=== PATIENT | female | born 1935 | race Asian ===

== ENCOUNTER 2016-09-20 12:45 | Observation (INO) | payer OTHER, MEDICARE ==
[2016-09-20 12:56] VITALS: BMI 21.4
--- NOTE | 2016-09-20 13:54 | PDOC ---
History of Present Illness - General History Source: Patient Exam Limitations: No Limitations - History of Present Illness Initial Comments: 09/20/16 14:21 The patient is a year-old woman, accompanied by friend, with a significant past medical history of hypertension, thyroid Ca status post resection (on remission ) who presents to the emergency department for further evaluation of lightheadedness. No fall, head injury. Patient states that she woke up this morning feeling lightheaded and nauseous, at approximately 08:30 AM. She initially ignored it but noticed that she started to have associated symptoms of chest pressure sensations and shortness of breath when laying down and when walking around the house today. She states this is very atypical, as she typically does not experience chest pains or shortness of breath. She was concerned thus, she called her primary care physician, Dr. Shaw, who unbeknownst to her, Dr. Shaw is currently on vacation. She then called Dr. Kauffman, who is her son-in-law who suggested to present to the emergency department for further evaluation. She reports undergoing a stress test last year (September/2015) and was normal. No fever, chills, diaphoresis. No headache, palpitations, loss of consciousness, neck pain N cough, shortness of breath No abdominal pain, vomiting, diarrhea, constipation No urinary symptoms. Allergies: No Known Drug Allergies Past Surgical History: Resection. Right knee arthroscopy. Social History: No tobacco, ETOH and recreational drug use. Primary Care Physician: Dr. Scott Mukherjee <Tia Gold - Last Filed: 09/20/16 15:08> <Christopher Richmond - Last Filed: 09/20/16 15:49> - General Chief Complaint: Lightheaded Stated Complaint: NAUSEA, DIZZINESS Time Seen by Provider: 09/20/16 13:45 Past History <Tia Gold - Last Filed: 09/20/16 15:08> - Past Medical History Anemia: No Asthma: No Cancer: Yes (thyroid cancer) Cardiac Disorders: No CVA: No COPD: No CHF: No Dementia: No Diabetes: No GI Disorders: No Disorders: No HTN: Yes Hypercholesterolemia: No Liver Disease: No Seizures: No Thyroid Disease: Yes (ENLARGED/Removed) - Surgical History Abdominal Surgery: No Appendectomy: No Cardiac Surgery: No Cholecystectomy: No Lung Surgery: No Neurologic Surgery: No Orthopedic Surgery: Yes (R KNEE ARTHROSCOPY) - Immunization History Immunization Up to Date: Yes - Psycho/Social/Smoking Cessation Hx Anxiety: No Suicidal Ideation: No Smoking Status: No Smoking History: Never smoked Have you smoked in the past 12 months: No Number of Cigarettes Smoked Daily: 0 Information on smoking cessation initiated: No Hx Alcohol Use: No Drug/Substance Use Hx: No Substance Use Type: None Hx Substance Use Treatment: No <Christopher Richmond - Last Filed: 09/20/16 15:49> - Past Medical History Allergies/Adverse Reactions: Allergies Allergy/AdvReac Type Severity Reaction Status Date / Time No Known Drug Allergies Allergy Verified 09/20/16 12:56 Home Medications: Ambulatory Orders Amlodipine Besylate [Norvasc -] 2.5 mg PO DAILY 05/29/16 Aspirin [ASA -] 81 mg PO DAILY PRN 05/29/16 Levothyroxine [Synthroid] 112 mcg PO DAILY 05/29/16 Meloxicam [Mobic] 15 mg PO DAILY PRN 05/29/16 Acetaminophen [Tylenol] 650 mg PO Q4H PRN #20 tablet 05/30/16 Loperamide HCl [Imodium -] 2 mg PO Q6H PRN #20 capsule 05/30/16 Mag Hydrox/Al Hydrox/Simeth [Mylanta Suspension -] 30 ml PO Q6H PRN #1 bottle Ondansetron HCl [Zofran] 4 mg PO Q6H PRN #15 tablet 05/30/16 Ondansetron [Zofran *Odt*] 8 mg SL TID #30 od.tablet 05/30/16 Ranitidine HCl [Zantac] 150 mg PO BID PRN #14 tablet 05/30/16 Review of Systems - Review of Systems Constitutional: No: Chills, Fever Respiratory: No: Cough, Shortness of Breath Cardiac (ROS): Yes: Chest Pain, Lightheadedness. No: Edema, Syncope ABD/GI: Yes: Nausea. No: Diarrhea, Vomiting : No: Dysuria, Frequency Musculoskeletal: No: Muscle Pain All Other Systems: Reviewed and Negative <Christopher Richmond - Last Filed: 09/20/16 15:49> *Physical Exam - Vital Signs Last Vital Signs Temp Pulse Resp BP Pulse Ox 97.8 F 85 17 152/85 100 09/20/16 12:55 09/20/16 12:55 09/20/16 12:55 09/20/16 12:55 09/20/16 12:55 - Physical Exam Comments: 09/20/16 14:23 GENERAL: The patient is awake, alert, and fully oriented, in no acute distress. HEAD: Normal with no signs of trauma. EYES: Pupils equal, round and reactive to light, extraocular movements intact, sclera anicteric, conjunctiva clear with no pallor. ENT: Ears normal, nares patent, oropharynx clear without exudates. Slightly dry mucous membranes. NECK: Normal range of motion, supple without lymphadenopathy, JVD, or masses. LUNGS: Breath sounds equal, clear to auscultation bilaterally. No wheeze/ crackles. HEART: Regular rate and rhythm, normal S1 and S2 without murmur or rub. ABDOMEN: Soft/nontender/nondistended. BS wnl. No guarding or rebound. No palpable masses. No hepatosplenomegaly. EXTREMITIES: Normal range of motion, no edema. No clubbing or cyanosis. No cords, erythema, or tenderness. NEUROLOGICAL: Cranial nerves II through XII grossly intact. Normal speech. PSYCH: Normal mood, normal affect. SKIN: Warm, Dry, normal turgor, no rashes or lesions noted. <Tia Gold - Last Filed: 09/20/16 15:08> - Vital Signs Last Vital Signs Temp Pulse Resp BP Pulse Ox 97.8 F 85 17 152/85 100 09/20/16 12:55 09/20/16 12:55 09/20/16 12:55 09/20/16 12:55 09/20/16 12:55 <Christopher Richmond - Last Filed: 09/20/16 15:49> Heart Score/ECG Review #1 ECG reviewed & interpreted by me at: 14:15 General ECG Interpretation: Sinus Rhythm (low voltage inferior leads), Normal Rate (77), Normal Intervals (qtc 439), No acute ischemic changes Compared to previous ECG there are: Changes noted (low voltage in the inferior leads is new c/w 12/03/12) <Christopher Richmond - Last Filed: 09/20/16 15:49> ED Treatment Course - LABORATORY CBC & Chemistry Diagram: 09/20/16 14:09 09/20/16 14:09 - RADIOLOGY Radiograph Interpretation: 09/20/16 15:08 EXAM: RAD/CHEST X-RAY PORTABLE IMPRESSION: Frontal view of the chest is provided. Prior study dated December 03, 2012. Lung parks appear clear without infiltrate or effusion. Cardiomediastinal silhouette is normal in size. There is a tortuous mildly sclerotic aorta. There are degenerative changes of the left glenohumeral joint. A small calcific density overlies the axillary recess raising possibility of intra-articular body. <Tia Gold - Last Filed: 09/20/16 15:08> - LABORATORY CBC & Chemistry Diagram: 09/20/16 14:09 09/20/16 14:09 <Christopher Richmond - Last Filed: 09/20/16 15:49> Medical Decision Making - Medical Decision Making 09/20/16 14:04 A portion of this note was documented by scribe services under my direction. I have reviewed the details of the note, within reason, and agree with the documentation with the following case summary and management plan written by me. 81-year-old female with history of well-controlled hypertension presents with lightheadedness and nausea with mild chest pressure since awakening this morning. No syncope, no difficulty breathing, no vomiting or focal deficit. Reportedly normal stress test about one year ago, no recent infectious symptoms. Vital signs normal. Exam is normal. 81-year-old female with hypertension presents with lightheadedness and nausea since awakening this morning. The mild chest pressure raises some concern for ACS, otherwise rule out other metabolic/infectious process. Labs, urinalysis EKG, chest x-ray IV fluids Reassess 09/20/16 15:41 No anemia, troponin negative, creatinine normal, urinalysis with 1+ ketones but no evidence of infection. Persistently lightheaded and EKG shows new low voltage in the inferior leads compared to prior EKGs. Given age and risk factors , will monitor overnight for cardiac workup and evaluation. Discussed with daughter (Dr. Kauffman), who requests admission to [facility] in light of Dr. Shaw being on vacation. Will give aspirin, continue iv fluids. <Christopher Richmond - Last Filed: 09/20/16 15:49> *DC/Admit/Observation/Transfer - Attestations Scribe Attestion: 09/20/16 14:24 Documentation prepared by Tia Gold, acting as regional medical director for Christopher Richmond MD. <Tia Gold - Last Filed: 09/20/16 15:08> - Discharge Dispostion Admit: Yes <Christopher Richmond - Last Filed: 09/20/16 15:49> Diagnosis at time of Disposition: Lightheaded, Abnormal electrocardiography - Discharge Dispostion Condition at time of disposition: Fair - Referrals Referrals: Scott Shaw MD [Primary Care Provider] -
[2016-09-20] MEDS ORDERED: SODIUM CHLORIDE 500 ML IV ONE (14:14)
[2016-09-20 14:52] LABS: BASOPHIL 2.5 % (0-2.0); EOSINOPHIL 0.9 % (0-4.5); MCH 31.4 pg (25.7-33.7); MCHC 34.2 g/dl (32.0-36.0); MEAN CELL VOLUME 91.8 fl (80-96); MEAN PLT VOLUME 6.5 fl (7.5-11.1); NEUTROPHILS 63.3 % (42.8-82.8); PLATELET COUNT 308 K/MM3 (134-434); WHITE BLOOD COUNT 4.5 K/mm3 (4.0-10.0)
[2016-09-20 14:59] LABS: URINE APPEARANCE CLEAR; URINE BILIRUBIN NEGATIVE (NEGATIVE); URINE BLOOD 1+ (NEGATIVE); URINE COLOR COLORLESS; URINE GLUCOSE (UA) NEGATIVE (NEGATIVE); URINE KETONE TRACE (NEGATIVE); URINE LEUK ESTERASE NEGATIVE (NEGATIVE); URINE NITRITE NEGATIVE (NEGATIVE); URINE PROTEIN NEGATIVE (NEGATIVE); URINE UROBILINOGEN NEGATIVE E.U./dl (0.2-1.0)
[2016-09-20 15:10] LABS: ANION GAP 8 (8-16); BILIRUBIN,TOTAL 0.4 mg/dL (0.2-1.0); CALCIUM 9.1 mg/dL (8.5-10.1); CO2 27 mmol/L (21-32); CREATININE 0.7 mg/dL (0.55-1.02); GLUCOSE,RANDOM 105 mg/dL (74-106); MAGNESIUM 2.3 mg/dL (1.8-2.4); SGOT/AST 24 U/L (15-37); SGPT/ALT 24 U/L (12-78); TOT PROT 7.5 g/dl (6.4-8.2)
[2016-09-20 15:12] LABS: URINE MUCUS RARE; URINE RBC <1 /hpf (0-3); URINE WBC <1 /hpf (3-5)
[2016-09-20 15:13] LABS: ALK PHOS 97 U/L (45-117); TROPONIN I < 0.02 ng/ml (0.00-0.05)
[2016-09-20 15:24] LABS: INR 1.07 (0.82-1.09); PROTHROMBIN TIME (PATIENT) 11.8 SEC (9.98-11.88)
[2016-09-20] MEDS ORDERED: ASPIRIN 81 MG CHEWABLE TABLETS PO ONE (15:45)
[2016-09-20] MEDS ORDERED: ASPIRIN 81 MG CHEWABLE TABLETS ONE (16:16)
--- NOTE | 2016-09-20 18:01 | HP ---
CHIEF COMPLAINT: Lightheadedness PCP: Dr. Mukherjee HISTORY OF PRESENT ILLNESS: This is a 81 year old female with a history of well -controlled HTN and thyroid ca s/p thyroidectomy and RTX in 2012 who presented to the ED today complaining of lightheadedness. The patient was in her usual state of health yesterday. She woke up this morning feeling "uneasy". and continued to have lightheadedness and mild nausea throughout the day. She denies headache, focal weakness, vertigo, chest pain, SOB, abdominal pain, vomiting/diarrhea/constipation, dysuria, unsteady gait, fevers/chills, or any other symptoms. She reports undergoing a stress test last year (September/2015) and was normal. ER course was notable for: (1) Normotensive, no tachycardia (2) Labs including CBC, comp, cardiac profile unremarkable (3) CXR: No effusion or infiltrate (4) EKG shows new low voltage in the inferior leads compared to prior EKGs Recent Travel: None PAST MEDICAL HISTORY: PAST SURGICAL HISTORY: Thyroidectomy, right knee arthroscopy, c/s x 2 Social History: Lives alone, independent in ADLs, retired nurse Smoking: None Alcohol: None Drugs: None Family History: Non-contributory Allergies No Known Drug Allergies Allergy (Verified 09/20/16 12:56) HOME MEDICATIONS: Home Medications Medication Instructions Recorded Amlodipine Besylate [Norvasc -] 2.5 mg PO DAILY 09/20/16 Aspirin [ASA -] 81 mg PO DAILY 09/20/16 Ca/D3/Mag#11/Zinc/Electrical Cad Technician/Boaz/Bor 1 PO DAILY 09/20/16 [Caltrate 600+D Plus Tablet] Levothyroxine [Synthroid -] 112 mcg PO DAILY 09/20/16 REVIEW OF SYSTEMS CONSTITUTIONAL: Absent: fever, chills, diaphoresis, generalized weakness, malaise, loss of appetite, weight change HEENT: Absent: rhinorrhea, nasal congestion, throat pain, throat swelling, difficulty swallowing, mouth swelling, ear pain, eye pain, visual changes CARDIOVASCULAR: Lightheadedness Absent: chest pain, syncope, palpitations, irregular heart rate, peripheral edema RESPIRATORY: Absent: cough, shortness of breath, dyspnea with exertion, orthopnea, wheezing, stridor, hemoptysis GASTROINTESTINAL: Mild nausea Absent: abdominal pain, abdominal distension, vomiting, diarrhea, constipation, melena, hematochezia GENITOURINARY: Absent: dysuria, frequency, urgency, hesitancy, hematuria, flank pain, genital pain MUSCULOSKELETAL: Absent: myalgia, arthralgia, joint swelling, back pain, neck pain SKIN: Absent: rash, itching, pallor HEMATOLOGIC/IMMUNOLOGIC: Absent: easy bleeding, easy bruising, lymphadenopathy, frequent infections ENDOCRINE: Absent: unexplained weight gain, unexplained weight loss, heat intolerance, cold intolerance NEUROLOGIC: Absent: headache, focal weakness or paresthesias, dizziness, unsteady gait, seizure, mental status changes, bladder or bowel incontinence PSYCHIATRIC: Absent: anxiety, depression, suicidal or homicidal ideation, hallucinations. PHYSICAL EXAMINATION Vital Signs - 24 hr 09/20/16 09/20/16 09/20/16 15:54 16:34 17:14 Pulse Rate [ 80 88 Left Radial] Respiratory 18 20 Rate Blood Pressure 130/80 142/60 [Left Arm] O2 Sat by Pulse 99 98 99 Oximetry (%) GENERAL: Awake, alert, and fully oriented, in no acute distress. EYES: Pupils equal, round and reactive to light, extraocular movements intact, sclera anicteric, conjunctiva clear. No lid lag. EARS, NOSE, THROAT: Ears normal, nares patent, oropharynx clear without exudates. Moist mucous membranes. NECK: Normal range of motion, supple without lymphadenopathy, JVD, or masses. LUNGS: Breath sounds equal, clear to auscultation bilaterally. No wheezes, and no crackles. No accessory muscle use. HEART: Regular rate and rhythm, normal S1 and S2 without murmur, rub or gallop. ABDOMEN: Soft, nontender, not distended, normoactive bowel sounds, no guarding, no rebound, no masses. No hepatomegaly or splenomegaly. MUSCULOSKELETAL: Normal range of motion at all joints. No bony deformities or tenderness. No CVA tenderness. UPPER EXTREMITIES: 2+ pulses, warm, well-perfused. No cyanosis. No clubbing. No peripheral edema. LOWER EXTREMITIES: 2+ pulses, warm, well-perfused. No calf tenderness. No peripheral edema. NEUROLOGICAL: Cranial nerves II-XII intact. Normal speech. Normal gait. No dysarthria, dysmetria, or dysdiadochokinesis. PSYCHIATRIC: Cooperative. Good eye contact. Appropriate mood and affect. SKIN: Warm, dry, normal turgor, no rashes or lesions noted, normal capillary refill. ASSESSMENT/PLAN: 81 year old female placed in observation for lightheadedness. 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 - New Patient This patient is new to me today: Yes Date on this admission: 09/20/16 - Critical Care Critical Care patient: No
[2016-09-20] MEDS ORDERED: ACETAMINOPHEN 325 MG TABLET (FP) PO PRN (18:05)
[2016-09-20] MEDS ORDERED: ONDANSETRON 4 MG/2 ML VIAL IVPB PRN (18:05)
[2016-09-20] MEDS ORDERED: SODIUM CHLORIDE 1,000 ML IV SCH (18:15)
[2016-09-20 22:27] LABS: TROPONIN I < 0.02 ng/ml (0.00-0.05)
[2016-09-21] MEDS ORDERED: LEVOTHYROXINE NA 112 MCG TABLET (FP) PO SCH (07:00)
[2016-09-21 08:25] LABS: BASOPHIL 2.5 % (0-2.0); EOSINOPHIL 1.8 % (0-4.5); MCH 31.4 pg (25.7-33.7); MCHC 34.4 g/dl (32.0-36.0); MEAN CELL VOLUME 91.4 fl (80-96); MEAN PLT VOLUME 6.7 fl (7.5-11.1); NEUTROPHILS 58.1 % (42.8-82.8); PLATELET COUNT 288 K/MM3 (134-434); RDW 13.8 % (11.6-15.6)
[2016-09-21 08:33] LABS: ALBUMIN 3.3 g/dl (3.4-5.0); ALK PHOS 77 U/L (45-117); ANION GAP 8 (8-16); BILIRUBIN,TOTAL 0.7 mg/dL (0.2-1.0); CALCIUM 8.1 mg/dL (8.5-10.1); CHOLESTEROL 185 mg/dL (50-200); CO2 24 mmol/L (21-32); CREATININE 0.7 mg/dL (0.55-1.02); GLUCOSE,RANDOM 92 mg/dL (74-106); LDL CHOLESTEROL (ONLY SJRH) 98 mg/dL (5-100); SGOT/AST 19 U/L (15-37); SGPT/ALT 21 U/L (12-78); TOT PROT 6.4 g/dl (6.4-8.2); TROPONIN I < 0.02 ng/ml (0.00-0.05)
[2016-09-21] MEDS ORDERED: ENOXAPARIN NA (PORCINE) 40 MG/0.4 ML DISP.SYRIN SQ SCH (10:00)
[2016-09-21] MEDS ORDERED: [UNRECOGNIZED DRUG - OTHER] PO SCH (10:00)
[2016-09-21] MEDS ORDERED: CALCIUM 500MG/VIT-D 200 UNITS COMBO TABLET (FP) PO SCH (11:45)
--- NOTE | 2016-09-21 11:49 | CON.CARD ---
Consult Consult Specialty:: Cardiology Referred by:: Hospitalist Medicine Reason for Consultation:: Light-headedness - History of Present Illness Chief Complaint: Light-headedness History of Present Illness: HISTORY OF PRESENT ILLNESS: This is a 81 year old female with a history of well -controlled HTN and thyroid ca s/p thyroidectomy and RTX in 2012 who presented to the [facility] of lightheadedness and mild nausea throughout the day. She denies headache, focal weakness, vertigo, chest pain, SOB, abdominal pain, vomiting/diarrhea/constipation, dysuria, unsteady gait, fevers/chills, true syncope, palpitations, orthopnea, PND or LE edema, sxs have since resolved. She reports undergoing a stress test last year (September/2015) and was normal. Recent Travel: None PAST MEDICAL HISTORY: PAST SURGICAL HISTORY: Thyroidectomy, right knee arthroscopy, c/s x 2 Social History: Lives alone, independent in ADLs, retired nurse Smoking: None Alcohol: None Drugs: None Family History: Non-contributory Allergies - History Source History Provided By: Patient Limitations to Obtaining History: No Limitations - Past Medical History Cardio/Vascular: Yes: HTN ...: No - Alcohol/Substance Use Hx Alcohol Use: No - Smoking History Smoking history: Never smoked Have you smoked in the past 12 months: No Aproximately how many cigarettes per day: 0 Home Medications - Allergies Allergies/Adverse Reactions: Allergies Allergy/AdvReac Type Severity Reaction Status Date / Time No Known Drug Allergies Allergy Verified 09/20/16 12:56 - Home Medications Home Medications: Ambulatory Orders Amlodipine Besylate [Norvasc -] 2.5 mg PO DAILY 09/20/16 Aspirin [ASA -] 81 mg PO DAILY 09/20/16 Ca/D3/Mag#11/Zinc/Patient Financial Coordinator/Boaz/Bor [Caltrate 600+D Plus Tablet] 1 PO DAILY 09/20/16 Levothyroxine [Synthroid -] 112 mcg PO DAILY 09/20/16 Review of Systems - Review of Systems Neurological: reports: Dizziness Vital Signs: Vital Signs Temperature 98 F 09/21/16 09:00 Pulse Rate 80 09/21/16 09:00 Respiratory Rate 18 09/21/16 09:00 Blood Pressure 136/76 09/21/16 09:00 O2 Sat by Pulse Oximetry (%) 100 09/21/16 09:40 Constitutional: Yes: No Distress, Calm, Thin Neck: Yes: Supple Respiratory: Yes: Regular, CTA Bilaterally Gastrointestinal: Yes: Normal Bowel Sounds, Soft Cardiovascular: Yes: Regular Rate and Rhythm JVD: No Carotid Bruit: No Heart Sounds: Yes: S1, S2 Murmur: Yes: Systolic Murmur, Grade 1 Edema: No - Other Data Labs, Other Data: CBC, BMP 09/21/16 05:58 09/21/16 05:58 INR, PTT INR 1.07 (0.82-1.09) 09/20/16 14:09 Troponin, BNP 09/20/16 09/21/16 21:40 05:58 Troponin I < 0.02 < 0.02 Troponin, BNP 09/20/16 09/21/16 21:40 05:58 Troponin I < 0.02 < 0.02 Tele: Sinus tachycardia 110-120s Imaging - Results Chest X-ray: Report Reviewed (NAD) EKG: Report Reviewed (NSR low volts) Problem List - Problems (1) Hypertension Code(s): I10 - ESSENTIAL (PRIMARY) HYPERTENSION Qualifiers: Hypertension type: essential hypertension Qualified Code(s): I10 - Essential (primary) hypertension (2) Lightheaded Code(s): R42 - DIZZINESS AND GIDDINESS (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 Near syncope, possible neurocardiogenic etiology 2. HTN 3. Hypothyroidism P:1. Ruled out for CT, not orthostatic by vital signs, hydration 2. F/u echocardiogram to assess LV and valve fxn 3. Resume ASA 81 qd, Norvasc 2.5 qd as tolerated 4. Thank you for consultative opportunity
[2016-09-21] MEDS ORDERED: amLODIPine BESYLATE 2.5 MG TABLET (FP) PO SCH (12:11)
--- NOTE | 2016-09-21 12:28 | EKG ---
Test Reason : Blood Pressure : / mmHG Vent. Rate : 077 BPM Atrial Rate : 077 BPM P-R Int : 154 ms QRS Dur : 074 ms QT Int : 388 ms P-R-T Axes : -20 -23 152 degrees QTc Int : 439 ms NORMAL SINUS RHYTHM LOW VOLTAGE QRS INFERIOR INFARCT , AGE UNDETERMINED ABNORMAL ECG WHEN COMPARED WITH ECG OF 03-DEC-2012 09:08, INFERIOR INFARCT IS NOW PRESENT NONSPECIFIC T WAVE ABNORMALITY, WORSE IN INFERIOR LEADS Confirmed by RAYRAY FATIMA MD ([id number]) on 09/21/2016 12:28:10 PM Referred By: Confirmed By:RAYRAY FATIMA MD
[2016-09-21] MEDS ORDERED: CALCIUM (OYSTER SHELL) 500 MG TABLET (FP) PO SCH (12:45)
[2016-09-21 14:42] VITALS: BP 125/70; PULSE 81; TEMP 98.2
--- NOTE | 2016-09-21 16:30 | PN ---
Physical Exam: SUBJECTIVE: Patient seen and examined. She denies and chest pain or dizziness. Denies shortness of breath. OBJECTIVE: Appears comfortable at rest in no acute distress Vital Signs Period Temp Pulse Resp BP Sys/Stevens Pulse Ox Last 24 Hr 97.5 F-98.7 F 77-98 14-20 110-152/60-96 98-100 GENERAL: The patient is awake, alert, and fully oriented, in no acute distress. HEAD: Normal with no signs of trauma. EYES: PERRL, extraocular movements intact, sclera anicteric, conjunctiva clear. No ptosis. ENT: Ears normal, nares patent, oropharynx clear without exudates, moist mucous membranes. NECK: Trachea midline, full range of motion, supple. LUNGS: Breath sounds equal and clear to auscultation bilaterally, no wheezes, no crackles, no accessory muscle use. ABDOMEN: Soft, nontender, nondistended, normoactive bowel sounds, no guarding, no rebound, no hepatosplenomegaly, no masses. EXTREMITIES: warm, well-perfused, no edema. NEUROLOGICAL: Normal speech, gait not observed. PSYCH: Normal mood, normal affect. SKIN: Warm, dry, normal turgor, no rashes or lesions noted Laboratory Results - last 24 hr 09/20/16 09/21/16 09/21/16 21:40 05:58 05:58 WBC 4.0 RBC 3.83 Hgb 12.0 Hct 35.0 MCV 91.4 MCHC 34.4 RDW 13.8 Plt Count 288 MPV 6.7 L Neutrophils % 58.1 Lymphocytes % 25.8 Monocytes % 11.8 H Eosinophils % 1.8 D Basophils % 2.5 H Sodium 139 Potassium 4.4 Chloride 107 Carbon Dioxide 24 Anion Gap 8 BUN 19 H Creatinine 0.7 Creat Clearance w eGFR > 60 Random Glucose 92 Calcium 8.1 L Magnesium 2.0 Total Bilirubin 0.7 D AST 19 D ALT 21 Alkaline Phosphatase 77 D Creatine Kinase 71 65 Troponin I < 0.02 < 0.02 Total Protein 6.4 Albumin 3.3 L Triglycerides Cholesterol Total LDL Cholesterol HDL Cholesterol 09/21/16 05:58 WBC RBC Hgb Hct MCV MCHC RDW Plt Count MPV Neutrophils % Lymphocytes % Monocytes % Eosinophils % Basophils % Sodium Potassium Chloride Carbon Dioxide Anion Gap BUN Creatinine Creat Clearance w eGFR Random Glucose Calcium Magnesium Total Bilirubin AST ALT Alkaline Phosphatase Creatine Kinase Troponin I Total Protein Albumin Triglycerides 55 Cholesterol 185 Total LDL Cholesterol 98 HDL Cholesterol 83 H Active Medications Generic Name Dose Route Start Last Admin Trade Name Freq PRN Reason Stop Dose Admin Acetaminophen 650 mg 09/20/16 18:05 Tylenol - PO Q6H PRN FEVER OR PAIN Amlodipine Besylate 2.5 mg 09/21/16 12:11 09/21/16 12:19 Norvasc - PO 2.5 mg DAILY AKRLEE Administration Calcium Carbonate 500 mg 09/21/16 12:45 Os-Nabor 500mg - PO DAILY [facility] Calcium Carbonate/Cholecalciferol 1 tab 09/21/16 11:45 09/21/16 12:19 Os-Nabor 500+D - PO 1 tab DAILY [facility] Administration Enoxaparin Sodium 40 mg 09/21/16 10:00 09/21/16 11:28 Lovenox - SQ 40 mg DAILY KARLEE Administration Levothyroxine Sodium 112 mcg 09/21/16 07:00 09/21/16 06:31 Synthroid - PO 112 mcg DAILY@0700 [facility] Administration Ondansetron HCl 4 mg 09/20/16 18:05 Zofran Injection IVPB Q6H PRN NAUSEA ASSESSMENT/PLAN:
--- NOTE | 2016-09-21 16:53 | DS ---
Physical Exam: SUBJECTIVE: Patient seen and examined. She denies any dizziness. States she is able to walk up and down the pod without any dizziness or shortness of breath. OBJECTIVE: Appears well, in no distress, tolerating room air Denies dizziness or any other discomfort. Vital Signs Period Temp Pulse Resp BP Sys/Stevens Pulse Ox Last 24 Hr 97.5 F-98.7 F 77-98 14-20 110-152/60-96 98-100 PHYSICAL EXAM GENERAL: The patient is awake, alert, and fully oriented, in no acute distress. HEAD: Normal with no signs of trauma. EYES: PERRL, extraocular movements intact, sclera anicteric, conjunctiva clear. ENT: Ears normal, nares patent, oropharynx clear without exudates, moist mucous membranes. NECK: Trachea midline, full range of motion, supple. LUNGS: Breath sounds equal, clear to auscultation bilaterally, no wheezes, no crackles, no accessory muscle use. HEART: Regular rate and rhythm, S1, S2 without murmur, rub or gallop. ABDOMEN: Soft, nontender, nondistended, normoactive bowel sounds, no guarding, no rebound, no hepatosplenomegaly, no masses. EXTREMITIES: 2+ pulses, warm, well-perfused, no edema. NEUROLOGICAL: Normal speech, steady gait PSYCH: Normal mood, normal affect. SKIN: Warm, dry, normal turgor, no rashes or lesions noted. LABS Laboratory Results - last 24 hr 09/20/16 09/21/16 09/21/16 21:40 05:58 05:58 WBC 4.0 RBC 3.83 Hgb 12.0 Hct 35.0 MCV 91.4 MCHC 34.4 RDW 13.8 Plt Count 288 MPV 6.7 L Neutrophils % 58.1 Lymphocytes % 25.8 Monocytes % 11.8 H Eosinophils % 1.8 D Basophils % 2.5 H Sodium 139 Potassium 4.4 Chloride 107 Carbon Dioxide 24 Anion Gap 8 BUN 19 H Creatinine 0.7 Creat Clearance w eGFR > 60 Random Glucose 92 Calcium 8.1 L Magnesium 2.0 Total Bilirubin 0.7 D AST 19 D ALT 21 Alkaline Phosphatase 77 D Creatine Kinase 71 65 Troponin I < 0.02 < 0.02 Total Protein 6.4 Albumin 3.3 L Triglycerides Cholesterol Total LDL Cholesterol HDL Cholesterol 09/21/16 05:58 WBC RBC Hgb Hct MCV MCHC RDW Plt Count MPV Neutrophils % Lymphocytes % Monocytes % Eosinophils % Basophils % Sodium Potassium Chloride Carbon Dioxide Anion Gap BUN Creatinine Creat Clearance w eGFR Random Glucose Calcium Magnesium Total Bilirubin AST ALT Alkaline Phosphatase Creatine Kinase Troponin I Total Protein Albumin Triglycerides 55 Cholesterol 185 Total LDL Cholesterol 98 HDL Cholesterol 83 H HOSPITAL COURSE: Date of Admission:09/20/16 Date of Discharge: 09/21/16 Patient is a 81 year old female with a history of hypertension and thyroid ca s/ p thyroidectomy. She presented to the ED on 09/20/2016 with complaints of feeling lightheaded. She states she woke up in the morning and felt like something was not right. She was lightheaded and had mild nausea throughout the day. On exam, she denies any headache, double vision, dizziness, chest pain, shortness of breath, vomiting or unsteady gait. She in fact stated she felt better and her symptoms have subsided. Imaging: Carotid doppler 09/21/2016: min intimal thickening at the common carotid bifurcation w/o evidence of hemodynamic significant stenosis. Echo 09/21/2016 - left vent size thickness and fx are normal, RV normal in size and function, trace tricus. regurg. Chest Xray - no acute disease in the chest Neuro: Lightheadness - resolved Assessment/Plan: No neurological deficits noted on exam Patient denies feeling dizzy or lightheaded Troponins negative x 3, echo and carotid doppler as above Tolerating meals without nausea, denies any further nausea or vomiting Ambulating up and down the pod without dizziness or shortness of breath States she feels like she is back to normal now Cardiology saw pt, notes noted Pt to follow up with her winterizer on discharge Cardiology: Hypertension - chronic/controlled Assessment/Plan: controlled on current regimen of Norvasc 2.5mg daily Oncology: throid cancer-s/p thyroidectomy Assessment/Plan: On synthroid and calcium supplements Disposition: Patient is to follow up with her winterizer as an outpatient. Full Code. Minutes to complete discharge: 45 Discharge Summary Reason For Visit: LIGHTHEADEDNESS Current Active Problems Abnormal EKG (Acute) DVT prophylaxis (Acute) H/O thyroidectomy (Acute) Hypertension (Acute) Hypothyroidism associated with surgical procedure (Acute) Lightheaded (Acute) Condition: Improved - Instructions Diet, Activity, Other Instructions: Please follow up with Dr. Gregg, winterizer upon discharge. Please return to the ER with any new or persistent symptoms. Referrals: Scott Shaw MD [Primary Care Provider] - Wing Gregg MD [Staff Physician] - Disposition: HOME - Home Medications Comprehensive Discharge Medication List: Ambulatory Orders Amlodipine Besylate [Norvasc -] 2.5 mg PO DAILY 09/20/16 Aspirin [ASA -] 81 mg PO DAILY 09/20/16 Ca/D3/Mag#11/Zinc/Kennel Staff Member/Boaz/Bor [Caltrate 600+D Plus Tablet] 1 PO DAILY 09/20/16 Levothyroxine [Synthroid -] 112 mcg PO DAILY 09/20/16 This patient is new to me today: Yes Date on this admission: 09/21/16 Emergency Visit: Yes ED Registration Date: 09/20/16 Care time: The patient presented to the Emergency Department on the above date and was hospitalized for further evaluation of their emergent condition. Critical Care patient: No - Discharge Referral Referred to [facility] Med P.C.: No
[2016-09-22] MEDS ORDERED: amLODIPine BESYLATE 2.5 MG TABLET (FP) PO SCH (10:00)
[2016-09-22] MEDS ORDERED: CALCIUM 500MG/VIT-D 200 UNITS COMBO TABLET (FP) PO SCH (10:00)
== END 2016-09-21 17:55 | disposition home or self-care (01) ==
LOC: JER 12:45 → JERBED 15:48 → J4W 18:55
PROVIDERS: ADMIT Internal Medicine; ATTEND Nurse Practitioner Family
PROC: 3E013GC Introduction of Other Therapeutic Substance into Subcutaneous Tissue, Percutaneous Approach (ICD-10-PCS; principal; 2016-09-20)
DX: R42 Dizziness and giddiness (principal); R94.31 Abnormal electrocardiogram [ECG] [EKG]; Z85.850 Personal history of malignant neoplasm of thyroid; E89.0 Postprocedural hypothyroidism; I10 Essential (primary) hypertension
CPT/HCPCS: 36415; 71010-TC; 80053; 80061; 81003; 81015; 82550; 83721; 83735; 84484; 85025; 85610; 93005; 93010; 93306-TC; 93880-TC; 99285-25; G0378

== ENCOUNTER 2017-02-03 18:03 | Observation (INO) | payer OTHER, MEDICARE ==
[2017-02-03 18:19] VITALS: BMI 20.7
--- NOTE | 2017-02-03 18:22 | PDOC ---
History of Present Illness - General Chief Complaint: Altered Mental Status Stated Complaint: AMS Time Seen by Provider: 02/03/17 18:18 - History of Present Illness Initial Comments: 02/03/17 18:21 Ms. Rivera is a 81 yo female with a significant past medical history of HTN, Thyroid Cancer s/p thyroidectomy who presents to the emergency department via EMS after she was noted to be acutely altered and saying that she felt "dizzy" over and over. Per family she was her normal self at 1pm but was noted to be confused when called around 4:30 pm this evening. Past History - Past Medical History Allergies/Adverse Reactions: Allergies Allergy/AdvReac Type Severity Reaction Status Date / Time No Known Drug Allergies Allergy Verified 09/20/16 12:56 Home Medications: Ambulatory Orders Amlodipine Besylate [Norvasc -] 2.5 mg PO DAILY 09/20/16 Aspirin [ASA -] 81 mg PO DAILY 09/20/16 Ca/D3/Mag#11/Zinc/Electric Motor Repair Supervisor/Boaz/Bor [Caltrate 600+D Plus Tablet] 1 PO DAILY 09/20/16 Levothyroxine [Synthroid -] 112 mcg PO DAILY 09/20/16 Anemia: No Asthma: No Cancer: Yes (thyroid cancer) Cardiac Disorders: No CVA: No COPD: No CHF: No Dementia: No Diabetes: No GI Disorders: No Disorders: No HTN: Yes Hypercholesterolemia: No Liver Disease: No Seizures: No Thyroid Disease: Yes (ENLARGED/Removed) - Surgical History Abdominal Surgery: No Appendectomy: No Cardiac Surgery: No Cholecystectomy: No Lung Surgery: No Neurologic Surgery: No Orthopedic Surgery: Yes (R KNEE ARTHROSCOPY) - Immunization History Immunization Up to Date: Yes - Psycho/Social/Smoking Cessation Hx Anxiety: No Suicidal Ideation: No Smoking Status: No Smoking History: Unknown if ever smoked Have you smoked in the past 12 months: No Number of Cigarettes Smoked Daily: 0 Information on smoking cessation initiated: No Hx Alcohol Use: No Drug/Substance Use Hx: No Substance Use Type: None Hx Substance Use Treatment: No Review of Systems - Review of Systems Comments:: Unable to evaluate as patient very confused *Physical Exam - Vital Signs Last Vital Signs Temp Pulse Resp BP Pulse Ox 97.5 F L 96 H 18 174/101 100 02/03/17 18:12 02/03/17 18:12 02/03/17 18:12 02/03/17 18:12 02/03/17 18:12 - Physical Exam Comments: 02/03/17 18:22 GENERAL: Awake, unable to articulate /person/place/time. Continually states she feels dizzy. HEAD: No signs of trauma, normocephalic, atraumatic EYES: PERRLA, EOMI, sclera anicteric, conjunctiva clear ENT: Auricles normal inspection, hearing grossly normal, nares patent, oropharynx clear without exudates. Moist mucosa NECK: Normal ROM, supple, no lymphadenopathy, JVD, or masses LUNGS: No distress, speaks full sentences, clear to auscultation bilaterally HEART: Regular rate and rhythm, normal S1 and S2, no murmurs, rubs or gallops, peripheral pulses normal and equal bilaterally. ABDOMEN: Soft, nontender, normoactive bowel sounds. No guarding, no rebound. No masses EXTREMITIES: Normal inspection, Normal range of motion, no edema. No clubbing or cyanosis. NEUROLOGICAL: Cranial nerves II through XII grossly intact. Normal speech, normal gait, no focal sensorimotor deficits SKIN: Warm, Dry, normal turgor, no rashes or lesions noted. ED Treatment Course - LABORATORY CBC & Chemistry Diagram: 02/03/17 18:20 02/03/17 18:20 Medical Decision Making - Medical Decision Making 02/03/17 20:59 Ms. Rivera presents with acute mental status change. Head CT and chest XR negative. Labs as below and unimpressive. Neurology consulted and recommended MRI for further evaluation with control of BP for possible hypertensive encephalopathy. Patient discussed with symphony team for admission. Telemetry bed requested. Laboratory Results - last 24 hr 02/03/17 02/03/17 02/03/17 18:09 18:20 18:20 WBC 5.3 D RBC 4.53 Hgb 14.1 D Hct 41.4 D MCV 91.3 MCH 31.1 MCHC 34.0 RDW 13.8 Plt Count 303 MPV 6.5 L Neutrophils % 59.4 Lymphocytes % 29.4 Monocytes % 9.4 Eosinophils % 0.7 Basophils % 1.1 Sodium 132 L Potassium 4.1 Chloride 97 L Carbon Dioxide 24 Anion Gap 11 BUN 18 Creatinine 0.8 Creat Clearance w eGFR > 60 POC Glucometer 122.26318 Random Glucose 120 H D Lactic Acid Calcium 9.1 Total Bilirubin 0.4 D AST 18 ALT 22 Alkaline Phosphatase 107 D Creatine Kinase Troponin I Total Protein 7.9 D Albumin 4.4 D TSH Urine Color Urine Appearance Urine pH Urine Protein Urine Glucose (UA) Urine Ketones Urine Blood Urine Nitrite Urine Bilirubin Urine Urobilinogen Ur Leukocyte Esterase Urine RBC Urine WBC Urine Mucus Salicylates Opiates Screen Methadone Screen Acetaminophen Barbiturate Screen Phencyclidine Screen Ur Amphetamines Screen MDMA (Ecstasy) Screen Benzodiazepines Screen Cocaine Screen U Marijuana (THC) Screen 02/03/17 02/03/17 02/03/17 18:20 18:20 18:31 WBC RBC Hgb Hct MCV MCH MCHC RDW Plt Count MPV Neutrophils % Lymphocytes % Monocytes % Eosinophils % Basophils % Sodium Potassium Chloride Carbon Dioxide Anion Gap BUN Creatinine Creat Clearance w eGFR POC Glucometer Random Glucose Lactic Acid 1.2 Calcium Total Bilirubin AST ALT Alkaline Phosphatase Creatine Kinase 95 Troponin I < 0.02 Total Protein Albumin TSH 1.02 Urine Color Urine Appearance Urine pH Urine Protein Urine Glucose (UA) Urine Ketones Urine Blood Urine Nitrite Urine Bilirubin Urine Urobilinogen Ur Leukocyte Esterase Urine RBC Urine WBC Urine Mucus Salicylates < 4.0 Opiates Screen Methadone Screen Acetaminophen < 2.000 L Barbiturate Screen Phencyclidine Screen Ur Amphetamines Screen MDMA (Ecstasy) Screen Benzodiazepines Screen Cocaine Screen U Marijuana (THC) Screen 02/03/17 02/03/17 19:13 19:13 WBC RBC Hgb Hct MCV MCH MCHC RDW Plt Count MPV Neutrophils % Lymphocytes % Monocytes % Eosinophils % Basophils % Sodium Potassium Chloride Carbon Dioxide Anion Gap BUN Creatinine Creat Clearance w eGFR POC Glucometer Random Glucose Lactic Acid Calcium Total Bilirubin AST ALT Alkaline Phosphatase Creatine Kinase Troponin I Total Protein Albumin TSH Urine Color Straw Urine Appearance Clear Urine pH 7.0 Urine Protein Negative Urine Glucose (UA) Negative Urine Ketones Trace H Urine Blood 1+ H Urine Nitrite Negative Urine Bilirubin Negative Urine Urobilinogen Negative Ur Leukocyte Esterase Negative Urine RBC 8 Urine WBC <1 Urine Mucus Rare Salicylates Opiates Screen Negative Methadone Screen Negative Acetaminophen Barbiturate Screen Negative Phencyclidine Screen Negative Ur Amphetamines Screen Negative MDMA (Ecstasy) Screen Negative Benzodiazepines Screen Negative Cocaine Screen Negative U Marijuana (THC) Screen Negative 02/03/17 21:03 *DC/Admit/Observation/Transfer Diagnosis at time of Disposition: Altered mental status Qualifiers: Altered mental status type: unspecified Qualified Code(s): R41.82 - Altered mental status, unspecified - Discharge Dispostion Admit: Yes
[2017-02-03 18:28] LABS: BASOPHIL 1.1 % (0-2.0); EOSINOPHIL 0.7 % (0-4.5); MCH 31.1 pg (25.7-33.7); MEAN CELL VOLUME 91.3 fl (80-96); MEAN PLT VOLUME 6.5 fl (7.5-11.1); NEUTROPHILS 59.4 % (42.8-82.8); PLATELET COUNT 303 K/MM3 (134-434); RDW 13.8 % (11.6-15.6); WHITE BLOOD COUNT 5.3 K/mm3 (4.0-10.0)
[2017-02-03 18:56] LABS: ALBUMIN 4.4 g/dl (3.4-5.0); ALK PHOS 107 U/L (45-117); ANION GAP 11 (8-16); BILIRUBIN,TOTAL 0.4 mg/dL (0.2-1.0); CALCIUM 9.1 mg/dL (8.5-10.1); CO2 24 mmol/L (21-32); CREATININE 0.8 mg/dL (0.55-1.02); GLUCOSE,RANDOM 120 mg/dL (74-106); SGOT/AST 18 U/L (15-37); SGPT/ALT 22 U/L (12-78); TOT PROT 7.9 g/dl (6.4-8.2)
[2017-02-03 18:57] LABS: CPK 95 IU/L (26-192); TROPONIN I < 0.02 ng/ml (0.00-0.05)
[2017-02-03 19:07] LABS: SALICYLATE < 4.0 mg/dl (0.0-30.0)
[2017-02-03 19:28] LABS: URINE APPEARANCE CLEAR; URINE BILIRUBIN NEGATIVE (NEGATIVE); URINE BLOOD 1+ (NEGATIVE); URINE COLOR STRAW; URINE GLUCOSE (UA) NEGATIVE (NEGATIVE); URINE KETONE TRACE (NEGATIVE); URINE LEUK ESTERASE NEGATIVE (NEGATIVE); URINE NITRITE NEGATIVE (NEGATIVE); URINE PROTEIN NEGATIVE (NEGATIVE); URINE UROBILINOGEN NEGATIVE mg/dL (0.2-1.0)
[2017-02-03 19:31] LABS: THYROID STIMULATING HORMONE 1.02 uIU/ml (0.358-3.74)
[2017-02-03 19:36] LABS: URINE MUCUS RARE; URINE RBC 8 /hpf (0-3); URINE WBC <1 /hpf (3-5)
[2017-02-03 19:38] LABS: URINE MARIJUANA THC NEGATIVE ng/ml (CUTOFF=50)
[2017-02-03] MEDS ORDERED: LABETALOL HCL 5 MG/1 ML (200MG/40ML VIAL) IVPB ONE (20:17)
[2017-02-03] MEDS: LABETALOL HCL 5 MG/1 ML (100MG/20 ML VIAL) IVPUSH ONE ×2 (20:25→21:31)
[2017-02-03] MEDS ORDERED: LABETALOL HCL 5 MG/1 ML (100MG/20 ML VIAL) IVPUSH ONE (21:03)
[2017-02-03] MEDS: DEXTROSE 5%-0.45% SALINE 1,000 ML IV SCH (21:25)
[2017-02-03] MEDS ORDERED: SODIUM CHLORIDE 250 ML IV STA (21:36)
--- NOTE | 2017-02-03 21:48 | HP ---
CHIEF COMPLAINT: Altered Mental Status PCP: Dr. Scott Shaw Medical Or Surgical Instrument Maker: Dr. Gregg HISTORY OF PRESENT ILLNESS: This is a 81 y/o woman with a past medical history of Hypertension, Thyroid Ca ( s/p Thyroidectomy, RTX, 2012). BIBA from home with family for AMS. Per patient' s daughter, patient was fine earlier in the day, went to anglican in the morning, last known well at 1300. Patient's daughter reports, other family member spoke with patient on the phone around 16:30, and patient's speech seemed repetitive and nonsensical. When other family member arrived to patient's residence, patient was found in bed disoriented. Of note, the patient's niece reports that the patient had difficulty ambulating to the bathroom, needing assistance- not patient's baseline. Patient's daughter reports, last month the patient was placed on Xanax for Insomnia but the patient stopped taking it "made her feel funny". Per daughter, patient was taking Prozac for ?Depression. She reports the patient also had possible adjustments recently to her BP meds by her Medical Or Surgical Instrument Maker. The family reports that the patient did not take her medications today. 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, Retired Nurse Family History: Non-Contributory Allergies No Known Drug Allergies Allergy (Verified 09/20/16 12:56) HOME MEDICATIONS: Home Medications Medication Instructions Recorded Amlodipine Besylate [Norvasc -] 2.5 mg PO DAILY 09/20/16 Aspirin [ASA -] 81 mg PO DAILY 09/20/16 Ca/D3/Mag#11/Zinc/Inside Parts Sales/Boaz/Bor 1 PO DAILY 09/20/16 [Caltrate 600+D Plus Tablet] Levothyroxine [Synthroid -] 112 mcg PO DAILY 09/20/16 REVIEW OF SYSTEMS CONSTITUTIONAL: Absent: fever, chills, diaphoresis, generalized weakness, malaise, loss of appetite, weight change HEENT: Absent: rhinorrhea, nasal congestion, throat pain, throat swelling, difficulty swallowing, mouth swelling, ear pain, eye pain, visual changes CARDIOVASCULAR: Absent: chest pain, syncope, palpitations, irregular heart rate, lightheadedness , peripheral edema RESPIRATORY: Absent: cough, shortness of breath, dyspnea with exertion, orthopnea, wheezing, stridor, hemoptysis GASTROINTESTINAL: Absent: abdominal pain, abdominal distension, nausea, vomiting, diarrhea, constipation, melena, hematochezia GENITOURINARY: Absent: dysuria, frequency, urgency, hesitancy, hematuria, flank pain, genital pain MUSCULOSKELETAL: Absent: myalgia, arthralgia, joint swelling, back pain, neck pain SKIN: Absent: rash, itching, pallor HEMATOLOGIC/IMMUNOLOGIC: Absent: easy bleeding, easy bruising, lymphadenopathy, frequent infections ENDOCRINE: Absent: unexplained weight gain, unexplained weight loss, heat intolerance, cold intolerance NEUROLOGIC: dizziness, unsteady gait, mental status changes Absent: headache, focal weakness or paresthesias, seizure, bladder or bowel incontinence PSYCHIATRIC: Absent: anxiety, depression, suicidal or homicidal ideation, hallucinations. PHYSICAL EXAMINATION GENERAL: Asleep, arousable, and oriented to name only, in no acute distress. HEAD: Normal with no signs of trauma. EYES: Pupils equal, round and reactive to light, sclera anicteric, conjunctiva clear. No lid lag. Unable to perform EOMs (due to patient's altered state) EARS, NOSE, THROAT: Ears normal, nares patent, oropharynx clear without exudates. Dry mucous membranes. NECK: Normal range of motion, supple without lymphadenopathy, JVD, or masses. LUNGS: Breath sounds equal, clear to auscultation bilaterally. No wheezes, and no crackles. No accessory muscle use. HEART: Regular rate and rhythm, normal S1 and S2 without murmur, rub or gallop. ABDOMEN: Soft, nontender, not distended, normoactive bowel sounds, no guarding, no rebound, no masses. No hepatomegaly or splenomegaly. MUSCULOSKELETAL: Normal range of motion at all joints. No bony deformities or tenderness. No CVA tenderness. UPPER EXTREMITIES: 2+ pulses, warm, well-perfused. No cyanosis. No clubbing. No peripheral edema. LOWER EXTREMITIES: 2+ pulses, warm, well-perfused. No calf tenderness. No peripheral edema. NEUROLOGICAL: Cranial nerves II-XII intact. Nonsensical speech. Gait not observed. PSYCHIATRIC: Cooperative. Limited eye contact. Appropriate mood and affect. SKIN: Warm, dry, normal turgor, no rashes or lesions noted, normal capillary refill. Laboratory Results - last 24 hr 02/03/17 02/03/17 02/03/17 18:09 18:20 18:20 WBC 5.3 D RBC 4.53 Hgb 14.1 D Hct 41.4 D MCV 91.3 MCH 31.1 MCHC 34.0 RDW 13.8 Plt Count 303 MPV 6.5 L Neutrophils % 59.4 Lymphocytes % 29.4 Monocytes % 9.4 Eosinophils % 0.7 Basophils % 1.1 Sodium 132 L Potassium 4.1 Chloride 97 L Carbon Dioxide 24 Anion Gap 11 BUN 18 Creatinine 0.8 Creat Clearance w eGFR > 60 POC Glucometer 122.35458 Random Glucose 120 H D Lactic Acid Calcium 9.1 Total Bilirubin 0.4 D AST 18 ALT 22 Alkaline Phosphatase 107 D Creatine Kinase Troponin I Total Protein 7.9 D Albumin 4.4 D TSH Urine Color Urine Appearance Urine pH Ur Specific [place] Urine Protein Urine Glucose (UA) Urine Ketones Urine Blood Urine Nitrite Urine Bilirubin Urine Urobilinogen Ur Leukocyte Esterase Urine RBC Urine WBC Urine Mucus Salicylates Opiates Screen Methadone Screen Acetaminophen Barbiturate Screen Phencyclidine Screen Ur Amphetamines Screen MDMA (Ecstasy) Screen Benzodiazepines Screen Cocaine Screen U Marijuana (THC) Screen 02/03/17 02/03/17 02/03/17 18:20 18:20 18:31 WBC RBC Hgb Hct MCV MCH MCHC RDW Plt Count MPV Neutrophils % Lymphocytes % Monocytes % Eosinophils % Basophils % Sodium Potassium Chloride Carbon Dioxide Anion Gap BUN Creatinine Creat Clearance w eGFR POC Glucometer Random Glucose Lactic Acid 1.2 Calcium Total Bilirubin AST ALT Alkaline Phosphatase Creatine Kinase 95 Troponin I < 0.02 Total Protein Albumin TSH 1.02 Urine Color Urine Appearance Urine pH Ur Specific [place] Urine Protein Urine Glucose (UA) Urine Ketones Urine Blood Urine Nitrite Urine Bilirubin Urine Urobilinogen Ur Leukocyte Esterase Urine RBC Urine WBC Urine Mucus Salicylates < 4.0 Opiates Screen Methadone Screen Acetaminophen < 2.000 L Barbiturate Screen Phencyclidine Screen Ur Amphetamines Screen MDMA (Ecstasy) Screen Benzodiazepines Screen Cocaine Screen U Marijuana (THC) Screen 02/03/17 02/03/17 02/04/17 19:13 19:13 01:00 WBC RBC Hgb Hct MCV MCH MCHC RDW Plt Count MPV Neutrophils % Lymphocytes % Monocytes % Eosinophils % Basophils % Sodium Potassium Chloride Carbon Dioxide Anion Gap BUN Creatinine Creat Clearance w eGFR POC Glucometer Random Glucose Lactic Acid Calcium Total Bilirubin AST ALT Alkaline Phosphatase Creatine Kinase Troponin I < 0.02 Total Protein Albumin TSH Urine Color Straw Urine Appearance Clear Urine pH 7.0 Ur Specific [place] 1.020 Urine Protein Negative Urine Glucose (UA) Negative Urine Ketones Trace H Urine Blood 1+ H Urine Nitrite Negative Urine Bilirubin Negative Urine Urobilinogen Negative Ur Leukocyte Esterase Negative Urine RBC 8 Urine WBC <1 Urine Mucus Rare Salicylates Opiates Screen Negative Methadone Screen Negative Acetaminophen Barbiturate Screen Negative Phencyclidine Screen Negative Ur Amphetamines Screen Negative MDMA (Ecstasy) Screen Negative Benzodiazepines Screen Negative Cocaine Screen Negative U Marijuana (THC) Screen Negative ASSESSMENT/PLAN: This is a 81 y/o woman with a PMHx of: Hypertension, Thyroid Ca, s/p Thyroidectomy (RTx 2012). Placed on Tele Observation for Acute AMS for further evaluation of their emergent condition. Problem List - Problem (1) Altered mental status Assessment/Plan: - Likely due to ?Hypertensive Urgency vs Hypertensive Encephalopathy vs CVA vs Medication Reaction - CT Head- negative ICH, mass or tumor - Appreciate Neurology Consult- notified by ED resident - MRI of Head- pending - NIHSS- unable to perform due to patient's current condition, no focal deficits appreciated - Continue Tele monitoring - Neuro checks Q4h - NPO - HOB elevated 30 deg - Swallow Eval Code(s): R41.82 - ALTERED MENTAL STATUS, UNSPECIFIED Qualifiers: Altered mental status type: unspecified Qualified Code(s): R41.82 - Altered mental status, unspecified (2) Lightheaded Assessment/Plan: - See Above Code(s): R42 - DIZZINESS AND GIDDINESS (3) Hypertension Assessment/Plan: - Uncontrolled - Continue Cardiac monitoring - Initial BP 174/101 vast increase compared to baseline, per family - Labetolol given in ED - Will maintain systolic BP 160s secondary to concern for stroke - Will hold home medications for now, until patient is alert and swallow eval is completed concern for aspiration - Appreciate Cardiology Consult - Will need to verify home meds with Cardiology - Labetolol prn - Monitor renal function - Monitor vitals Code(s): I10 - ESSENTIAL (PRIMARY) HYPERTENSION Qualifiers: (4) Hyponatremia Assessment/Plan: - Likely secondary to Dehydration - NS 250ml bolus given in ED - Will continue gentle IVF secondary to HTN - Repeat BMP in am Code(s): E87.1 - HYPO-OSMOLALITY AND HYPONATREMIA (5) Hematuria Assessment/Plan: - +1 Blood unchanged from admission 09/2016, slight improvement from +2 from admission 05/2016 - In light of patient's elevated BP, concern for Hypertensive Encephalopathy - Consider Urology Consult - Continue to monitor and treat with interventions accordingly Code(s): R31.9 - HEMATURIA, UNSPECIFIED (6) H/O thyroidectomy Assessment/Plan: - Secondary to Thyroid Ca, with RT 2012 - TSH 1.02 - Continue Levothyroxine Code(s): E89.0 - POSTPROCEDURAL HYPOTHYROIDISM (7) DVT prophylaxis Assessment/Plan: - OOB - SCDs - Consider ACs if LOS > 48 hrs Code(s): [id number] - Visit type - Emergency Visit Emergency Visit: Yes ED Registration Date: 02/03/17 Care time: The patient presented to the Emergency Department on the above date and was hospitalized for further evaluation of their emergent condition. - New Patient This patient is new to me today: Yes Date on this admission: 02/03/17 - Critical Care Critical Care patient: No
[2017-02-04] MEDS ORDERED: ACETAMINOPHEN 650 MG SUPP.RECT PR PRN (06:35)
[2017-02-04] MEDS: LEVOTHYROXINE NA 112 MCG TABLET (FP) PO SCH (06:47)
--- NOTE | 2017-02-04 08:25 | PN ---
Physical Exam: SUBJECTIVE: Patient seen and examined. States that she feels better today, no longer dizzy. Recounts that she had "problems with memory" yesterday which is unusal for her. OBJECTIVE: Vital Signs Period Temp Pulse Resp BP Sys/Stevens Pulse Ox Last 24 Hr 99.4 F-99.8 F 70-106 18-20 109-132/60-71 99-99 GENERAL: The patient is awake, alert, oriented to person and hospital (not year) . Unable to recall her nurse's name or my name after just learning them. HEAD: Normal with no signs of trauma. EYES: PERRL, extraocular movements intact, sclera anicteric, conjunctiva clear. No ptosis. ENT: Ears normal, nares patent, oropharynx clear without exudates, moist mucous membranes. NECK: Trachea midline, full range of motion, supple. LUNGS: Breath sounds equal, clear to auscultation bilaterally, no wheezes, no crackles, no accessory muscle use. HEART: Regular rate and rhythm, S1, S2 without murmur, rub or gallop. ABDOMEN: Soft, nontender, nondistended, normoactive bowel sounds, no guarding, no rebound, no hepatosplenomegaly, no masses. EXTREMITIES: 2+ pulses, warm, well-perfused, no edema. NEUROLOGICAL: Cranial nerves II through XII grossly intact. Normal speech, gait not observed. Mild expressive aphasia/difficulty with word-finding. PSYCH: Normal mood, normal affect. SKIN: Warm, dry, normal turgor, no rashes or lesions noted Laboratory Results - last 24 hr 02/04/17 01:00 Troponin I < 0.02 Active Medications Generic Name Dose Route Start Last Admin Trade Name Freq PRN Reason Stop Dose Admin Acetaminophen 650 mg 02/04/17 06:35 Tylenol Suppository - HI Q6H PRN FEVER OR PAIN Dextrose/Sodium Chloride 1,000 mls @ 42 mls/hr 02/03/17 20:45 02/03/17 21:25 D5-1/2ns - IV 42 mls/hr ASDIR KARLEE Administration Levothyroxine Sodium 112 mcg 02/04/17 07:00 02/04/17 06:47 Synthroid - PO 112 mcg DAILY@0700 KARLEE Administration ASSESSMENT/PLAN: 81 year old femal with a history of HTN and thyroid ca s/p RTX and thyroidectomy placed in observation for AMS and dizziness. 1. AMS -CTH: No acute intracranial process -MRI pending -Neuro checks q4h -Ruled out for [place] -Start clears (bedside swallow exam normal, but patient does not want to eat solid food) -Neurology evaluation pending 2. Dizziness/lightheadedness -Resolved -Fall risk precautions -Telemetry monitoring 3. HTN -Elevated at 174/101 on arrival, improved with IV Labetolol given in ED -Resume home Norvasc 4. Microscopic hematuria -Seen on prior admission in 09/2016 -Outpatient urology evaluation 4. S/p thyroidectomy -Continue Levothyroxine 5. Ppx -OOB with assistance -SCDs DISPO: Observation.
[2017-02-04 08:29] LABS: BASOPHIL 0.9 % (0-2.0); EOSINOPHIL 0.2 % (0-4.5); MCH 30.9 pg (25.7-33.7); MCHC 34.4 g/dl (32.0-36.0); MEAN CELL VOLUME 89.9 fl (80-96); MEAN PLT VOLUME 6.7 fl (7.5-11.1); NEUTROPHILS 66.4 % (42.8-82.8); PLATELET COUNT 308 K/MM3 (134-434); RDW 13.9 % (11.6-15.6); WHITE BLOOD COUNT 7.1 K/mm3 (4.0-10.0)
[2017-02-04 09:08] LABS: ANION GAP 11 (8-16); CALCIUM 8.6 mg/dL (8.5-10.1); CO2 24 mmol/L (21-32); CREATININE 0.7 mg/dL (0.55-1.02); GLUCOSE,RANDOM 115 mg/dL (74-106); PHOSPHOROUS 4.2 mg/dL (2.5-4.9)
[2017-02-04 09:11] LABS: TROPONIN I < 0.02 ng/ml (0.00-0.05)
--- NOTE | 2017-02-04 10:27 | CON.CARD ---
Consult Consult Specialty:: Cardiology Referred by:: Hospitalist Reason for Consultation:: Cardiac evaluation - History of Present Illness Chief Complaint: Altered mental status History of Present Illness: Patient is a 81 year old female of [place] with underlying history of hypertension, thyroid cancer s/p thyroidectomy and radiation therapy 2012 who was admitted with altered mental status. Patient went to mormonism in the morning and came back, she was found to have speech that was repetitive and not making any sense. Patient was found disoriented by the family and was also found to have difficulty ambulating. Patient was brought in for further evaluation. Currently, she denies chest pain, shortness of breath or palpitations. She denies paroxysmal nocturnal dyspnea or orthopnea. She denies fever or chills. She denies headache or lightheadedness. She is alert and oriented at this time. She was taking Prozac according to medical record. Cardiology consultation was called for further evaluation. Screen Printing Stencil Preparer: Dr. Wing Gregg MD - History Source History Provided By: Patient, Medical Record Limitations to Obtaining History: No Limitations - Past Medical History Cardio/Vascular: Yes: HTN Endocrine: Yes: Other (Thyroid cancer) - Past Surgical History Additional Surgical History: thyroidectomy - Alcohol/Substance Use Hx Alcohol Use: No - Smoking History Smoking history: Never smoked Have you smoked in the past 12 months: No Aproximately how many cigarettes per day: 0 Home Medications - Allergies Allergies/Adverse Reactions: Allergies Allergy/AdvReac Type Severity Reaction Status Date / Time No Known Drug Allergies Allergy Verified 09/20/16 12:56 - Home Medications Home Medications: Ambulatory Orders Amlodipine Besylate [Norvasc -] 2.5 mg PO DAILY 09/20/16 Aspirin [ASA -] 81 mg PO DAILY 09/20/16 Ca/D3/Mag#11/Zinc/Loan Specialist/Boaz/Bor [Caltrate 600+D Plus Tablet] 1 PO DAILY 09/20/16 Levothyroxine [Synthroid -] 112 mcg PO DAILY 09/20/16 Review of Systems - Review of Systems Constitutional: denies: Chills, Fever Cardiovascular: denies: Chest Pain, Palpitations, Shortness of Breath Respiratory: denies: Cough, Hemoptysis, Orthopnea, PND, SOB, SOB on Exertion Gastrointestinal: denies: Abdominal Pain, Constipation, Diarrhea, Melena, Nausea , Rectal Bleeding, Vomiting Musculoskeletal: denies: Joint Pain Neurological: reports: Change in Speech, Confusion. denies: Dizziness, Headache , Seizure, Syncope, Weakness Vital Signs: Vital Signs Temperature 98.8 F 02/04/17 10:00 Pulse Rate 80 02/04/17 10:00 Respiratory Rate 18 02/04/17 10:00 Blood Pressure 114/70 02/04/17 10:00 O2 Sat by Pulse Oximetry (%) 99 02/04/17 04:40 Neck: Yes: Supple Respiratory: Yes: CTA Bilaterally Gastrointestinal: Yes: Normal Bowel Sounds, Soft. No: Tenderness Cardiovascular: Yes: Regular Rate and Rhythm JVD: No Carotid Bruit: No PMI: Non-Displaced Heart Sounds: Yes: S1, S2 Murmur: No: Systolic Murmur - Other Data Labs, Other Data: CBC, BMP 02/04/17 05:40 02/04/17 05:40 Troponin, BNP 02/04/17 02/04/17 01:00 05:40 Troponin I < 0.02 < 0.02 Sinus rhythm, nonspecific ST-T abnormality Imaging - Results Chest X-ray: Report Reviewed (Unremarkable) Cat Scan: Report Reviewed (Head CT atrophy) MRI: Report Reviewed (Brain MRI - ischemic changes) EKG: Report Reviewed Problem List - Problems (1) Altered mental status Code(s): R41.82 - ALTERED MENTAL STATUS, UNSPECIFIED Qualifiers: Altered mental status type: unspecified Qualified Code(s): R41.82 - Altered mental status, unspecified (2) H/O thyroidectomy Code(s): E89.0 - POSTPROCEDURAL HYPOTHYROIDISM (3) Hypertension Code(s): I10 - ESSENTIAL (PRIMARY) HYPERTENSION Qualifiers: Hypertension type: essential hypertension (4) Thyroid cancer Code(s): C73 - MALIGNANT NEOPLASM OF THYROID GLAND Assessment/Plan 1. Altered mental status - now back to normal, possibly due to hypertensive encephalopathy (transient) 2. HTN/hypertensive cardiovascular disease 3. Cerebrovascular disease 4. History of thyroid cancer s/p thyroidectomy PLAN: 1. Continue Amlodipine and uptitrate 2. Neuro input to follow 3. Continue ASA 4. Continue thyroid replacement therapy 5. Continue monitor neuro status Further plans are to follow Nikita Cruz MD
--- NOTE | 2017-02-04 12:20 | CONSULT ---
Consult - text type - Consultation Consultation Note: Neurology This is a 81 y/o woman with a past medical history of Hypertension, Thyroid Ca ( s/p Thyroidectomy, RTX, 2012). BIBA from home with family for AMS. Per patient' s daughter, patient was fine earlier in the day, went to worship in the morning, last known well at 1300. Patient's daughter reports, other family member spoke with patient on the phone around 16:30, and patient's speech seemed repetitive and nonsensical. When other family member arrived to patient's residence, patient was found in bed disoriented. Of note, the patient's niece reports that the patient had difficulty ambulating to the bathroom, needing assistance- not patient's baseline. Patient's daughter reports, last month the patient was placed on Xanax for Insomnia but the patient stopped taking it "made her feel funny". Per daughter, patient was taking Prozac for ?sleep difficulty. She reports the patient also had possible adjustments recently to her BP meds by her Draw Off Worker. The family reports that the patient did not take her medications on day of admission. She completed CT head which did not show any acute chages. This morning, saw patient at bedside and she is doing well. She knows location, date, was not able to tell me name of President but was not confused. She had MRI brain completed which I reviewed and did not show infarct , there was white matter disease particularly in pontine region and likely hypertensive. Given this data, my presumptive Dx which is most likely now was HTN encephalopathy and she has responded to lowering blood pressure. Her Sodium was also slightly reduced at 132. 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, Retired Nurse Family History: Non-Contributory Allergies No Known Drug Allergies Allergy HOME MEDICATIONS: Home Medications Medication Instructions Recorded Amlodipine Besylate [Norvasc -] 2.5 mg PO DAILY 09/20/16 Aspirin [ASA -] 81 mg PO DAILY 09/20/16 Ca/D3/Mag#11/Zinc/Screw Remover/Baoz/Bor 1 PO DAILY 09/20/16 [Caltrate 600+D Plus Tablet] Levothyroxine [Synthroid -] 112 mcg PO DAILY 09/20/16 REVIEW OF SYSTEMS CONSTITUTIONAL: Absent: fever, chills, diaphoresis, generalized weakness, malaise, loss of appetite, weight change HEENT: Absent: rhinorrhea, nasal congestion, throat pain, throat swelling, difficulty swallowing, mouth swelling, ear pain, eye pain, visual changes CARDIOVASCULAR: Absent: chest pain, syncope, palpitations, irregular heart rate, lightheadedness , peripheral edema RESPIRATORY: Absent: cough, shortness of breath, dyspnea with exertion, orthopnea, wheezing, stridor, hemoptysis GASTROINTESTINAL: Absent: abdominal pain, abdominal distension, nausea, vomiting, diarrhea, constipation, melena, hematochezia GENITOURINARY: Absent: dysuria, frequency, urgency, hesitancy, hematuria, flank pain, genital pain MUSCULOSKELETAL: Absent: myalgia, arthralgia, joint swelling, back pain, neck pain SKIN: Absent: rash, itching, pallor HEMATOLOGIC/IMMUNOLOGIC: Absent: easy bleeding, easy bruising, lymphadenopathy, frequent infections ENDOCRINE: Absent: unexplained weight gain, unexplained weight loss, heat intolerance, cold intolerance NEUROLOGIC: dizziness, unsteady gait, mental status changes Absent: headache, focal weakness or paresthesias, seizure, bladder or bowel incontinence PSYCHIATRIC: Absent: anxiety, depression, suicidal or homicidal ideation, hallucinations. PHYSICAL EXAMINATION Last Vital Signs Temp Pulse Resp BP Pulse Ox 98.8 F 80 18 114/70 99 02/04/17 10:02/04/17 10:02/04/17 10:02/04/17 10:02/04/17 04:40 GENERAL: Asleep, arousable, and oriented to name only, in no acute distress. HEAD: Normal with no signs of trauma. EYES: Pupils equal, round and reactive to light, sclera anicteric, conjunctiva clear. No lid lag. Unable to perform EOMs (due to patient's altered state) EARS, NOSE, THROAT: Ears normal, nares patent, oropharynx clear without exudates. Dry mucous membranes. NECK: Normal range of motion, supple without lymphadenopathy, JVD, or masses. LUNGS: Breath sounds equal, clear to auscultation bilaterally. No wheezes, and no crackles. No accessory muscle use. HEART: Regular rate and rhythm, normal S1 and S2 without murmur, rub or gallop. ABDOMEN: Soft, nontender, not distended, normoactive bowel sounds, no guarding, no rebound, no masses. No hepatomegaly or splenomegaly. MUSCULOSKELETAL: Normal range of motion at all joints. No bony deformities or tenderness. No CVA tenderness. UPPER EXTREMITIES: 2+ pulses, warm, well-perfused. No cyanosis. No clubbing. No peripheral edema. LOWER EXTREMITIES: 2+ pulses, warm, well-perfused. No calf tenderness. No peripheral edema. NEUROLOGICAL: Cranial nerves II-XII intact. Nonsensical speech. Gait not observed. PSYCHIATRIC: Cooperative. Limited eye contact. Appropriate mood and affect. SKIN: Warm, dry, normal turgor, no rashes or lesions noted, normal capillary refill. CBCD WBC 7.1 K/mm3 (4.0-10.0) D 02/04/17 05:40 RBC 4.07 M/mm3 (3.60-5.2) 02/04/17 05:40 Hgb 12.6 GM/dL (10.7-15.3) D 02/04/17 05:40 Hct 36.6 % (32.4-45.2) 02/04/17 05:40 MCV 89.9 fl (80-96) 02/04/17 05:40 MCHC 34.4 g/dl (32.0-36.0) 02/04/17 05:40 RDW 13.9 % (11.6-15.6) 02/04/17 05:40 Plt Count 308 K/MM3 (134-434) 02/04/17 05:40 MPV 6.7 fl (7.5-11.1) L 02/04/17 05:40 CMP Sodium 133 mmol/L (136-145) L 02/04/17 05:40 Potassium 4.0 mmol/L (3.5-5.1) 02/04/17 05:40 Chloride 98 mmol/L (98-107) 02/04/17 05:40 Carbon Dioxide 24 mmol/L (21-32) 02/04/17 05:40 Anion Gap 11 (8-16) 02/04/17 05:40 BUN 14 mg/dL (7-18) D 02/04/17 05:40 Creatinine 0.7 mg/dL (0.55-1.02) 02/04/17 05:40 Creat Clearance w eGFR > 60 (>60) 02/03/17 18:20 Calcium 8.6 mg/dL (8.5-10.1) 02/04/17 05:40 Total Bilirubin 0.4 mg/dL (0.2-1.0) D 02/03/17 18:20 AST 18 U/L (15-37) 02/03/17 18:20 ALT 22 U/L (12-78) 02/03/17 18:20 Alkaline Phosphatase 107 U/L (45-117) D 02/03/17 18:20 Total Protein 7.9 g/dl (6.4-8.2) D 02/03/17 18:20 Albumin 4.4 g/dl (3.4-5.0) D 02/03/17 18:20 CT head and MRI brain reviewed ASSESSMENT/PLAN: This is a 81 y/o woman with a PMHx of: Hypertension, Thyroid Ca, s/p Thyroidectomy (RTx 2012) here for AMS, hyponatremia, hypertensive encephalopathy , had CT head which did not show any acute chages. This morning, saw patient at bedside and she is doing well. She knows location, date, was not able to tell me name of President but was not confused. She had MRI brain completed which I reviewed and did not show infarct, there was white matter disease particularly in pontine region and likely hypertensive. Tight blood pressure control, range 120-140 systolic preferred Cardiology following closely Hyponatremia Likely secondary to Dehydration IV fluids as needed, monitor bp and avoid HTN CT and MRI reviewed Mental status improving with hypertension control IF continues improvement, may be ok for Discharge tomorrow, monitor for now
[2017-02-04] MEDS: amLODIPine BESYLATE 2.5 MG TABLET (FP) PO SCH (12:46)
--- NOTE | 2017-02-04 13:39 | EKG ---
Test Reason : Blood Pressure : / mmHG Vent. Rate : 076 BPM Atrial Rate : 076 BPM P-R Int : 162 ms QRS Dur : 074 ms QT Int : 388 ms P-R-T Axes : 040 032 062 degrees QTc Int : 436 ms SINUS RTYTHM BASE LINE ARTIFACTS NONSPECIFIC ST AND T WAVE ABNORMALITY ABNORMAL ECG WHEN COMPARED WITH ECG OF 20-SEP-2016 14:15, NONSPECIFIC ST AND T WAVE ABNORMALITY REPEAT EKG IF CLINICALLY INDICATED Confirmed by CHRISTEL HUNTER MD ([id number]) on 02/04/2017 1:38:52 PM Referred By: Confirmed By:CHRISTEL HUNTER MD
[2017-02-04] MEDS ORDERED: amLODIPine BESYLATE 2.5 MG TABLET (FP) PO ONE (18:00)
[2017-02-05] MEDS: LEVOTHYROXINE NA 112 MCG TABLET (FP) PO SCH (06:16)
[2017-02-05] MEDS: DEXTROSE 5%-0.45% SALINE 1,000 ML IV SCH (06:16)
[2017-02-05 08:05] LABS: BASOPHIL 0.8 % (0-2.0); EOSINOPHIL 0.2 % (0-4.5); MCH 31.3 pg (25.7-33.7); MCHC 34.4 g/dl (32.0-36.0); MEAN CELL VOLUME 91.1 fl (80-96); MEAN PLT VOLUME 6.7 fl (7.5-11.1); NEUTROPHILS 74.7 % (42.8-82.8); PLATELET COUNT 287 K/MM3 (134-434); RDW 13.6 % (11.6-15.6); WHITE BLOOD COUNT 10.2 K/mm3 (4.0-10.0)
[2017-02-05 08:38] LABS: ANION GAP 12 (8-16); CO2 24 mmol/L (21-32); CREATININE 0.7 mg/dL (0.55-1.02); GLUCOSE,RANDOM 117 mg/dL (74-106)
--- NOTE | 2017-02-05 09:25 | PN ---
Physical Exam: SUBJECTIVE: Patient seen and examined at bedside. Denies all c/o at present. OBJECTIVE: Vital Signs Period Temp Pulse Resp BP Sys/Stevens Pulse Ox Last 24 Hr 98.4 F-99.2 F 64-100 16-20 114-144/70-82 100-100 GENERAL: The patient is awake, alert, and fully oriented, in no acute distress. HEAD: Normal with no signs of trauma. LUNGS: Breath sounds equal, clear to auscultation bilaterally, no wheezes, no crackles, no accessory muscle use. HEART: Regular rate and rhythm, S1, S2 without murmur, rub or gallop. ABDOMEN: Soft, nontender, nondistended, normoactive bowel sounds. EXTREMITIES: 2+ pulses, warm, well-perfused, no edema. NEUROLOGICAL: Cranial nerves II through XII grossly intact. Normal speech, gait steady. PSYCH: Normal mood, normal affect. SKIN: Warm, dry, normal turgor, no rashes or lesions noted Laboratory Results - last 24 hr 02/05/17 02/05/17 07:00 07:00 WBC 10.2 H D RBC 4.22 Hgb 13.2 Hct 38.4 MCV 91.1 MCH 31.3 MCHC 34.4 RDW 13.6 Plt Count 287 MPV 6.7 L Neutrophils % 74.7 Lymphocytes % 14.4 D Monocytes % 9.9 Eosinophils % 0.2 Basophils % 0.8 Sodium 136 Potassium 4.4 Chloride 100 Carbon Dioxide 24 Anion Gap 12 BUN 9 D Creatinine 0.7 Random Glucose 117 H Calcium 9.0 Active Medications Generic Name Dose Route Start Last Admin Trade Name Freq PRN Reason Stop Dose Admin Acetaminophen 650 mg 02/04/17 06:35 Tylenol Suppository - ND Q6H PRN FEVER OR PAIN Amlodipine Besylate 2.5 mg 02/04/17 11:00 02/04/17 12:46 Norvasc - PO 2.5 mg DAILY KARLEE Administration Aspirin 81 mg 02/05/17 10:00 Asa - PO DAILY KARLEE Calcium Carbonate/Cholecalciferol 1 tab 02/05/17 10:00 Os-Nabor 500+D - PO DAILY KARLEE Dextrose/Sodium Chloride 1,000 mls @ 42 mls/hr 02/03/17 20:45 02/05/17 06:16 D5-1/2ns - IV 42 mls/hr ASDIR KARLEE Administration Levothyroxine Sodium 112 mcg 02/04/17 07:00 02/05/17 06:16 Synthroid - PO 112 mcg DAILY@0700 KARLEE Administration Microbiology 02/04/17 09:05 Blood - Peripheral Venous Blood Culture - Preliminary NO GROWTH OBTAINED AFTER 24 HOURS, INCUBATION TO CONTINUE FOR 4 DAYS. 02/04/17 09:05 Blood - Peripheral Venous Blood Culture - Preliminary NO GROWTH OBTAINED AFTER 24 HOURS, INCUBATION TO CONTINUE FOR 4 DAYS. ASSESSMENT/PLAN: A: 81yo woman with HTN, s/p thyroidectomy with resolved AMS- likely from hypertensive encephalopathy P: 1. AMS - Resolved - CTH: No acute intracranial process - MRI- extensive ischemic changes to boaz and white matter - Ruled out for [place] - Start Low Na+ diet - Neurology following 2. Dizziness/lightheadedness - Resolved - Fall risk precautions - Telemetry monitoring 3. HTN - Elevated at 174/101 on arrival, currently 136/82 - Resume home Norvasc - Elevated HR- may want to add lose dose BB 4. Microscopic hematuria - Seen on prior admission in 09/2016 - Outpatient urology evaluation 4. S/p thyroidectomy - Continue Levothyroxine 5. PPX - OOB with assistance - SCDs Dispo: Observation with probable discharge today. Visit type - Emergency Visit Emergency Visit: Yes ED Registration Date: 02/03/17 Care time: The patient presented to the Emergency Department on the above date and was hospitalized for further evaluation of their emergent condition. - New Patient This patient is new to me today: Yes Date on this admission: 02/05/17 - Critical Care Critical Care patient: No
[2017-02-05] MEDS: amLODIPine BESYLATE 2.5 MG TABLET (FP) PO SCH (09:33)
[2017-02-05] MEDS ORDERED: CALCIUM 500MG/VIT-D 200 UNITS COMBO TABLET (FP) PO SCH (10:00)
[2017-02-05] MEDS ORDERED: ASPIRIN 81 MG CHEWABLE TABLETS PO SCH (10:00)
[2017-02-05] MEDS ORDERED: METOPROLOL TARTRATE 25 MG TABLET (FP) PO SCH (10:15)
[2017-02-05 10:26] VITALS: BP 119/72; PULSE 94; TEMP 98.1
--- NOTE | 2017-02-05 10:27 | PN ---
Progress Note, Physician Chief Complaint: Not in distress History of Present Illness: Patient was seen and examined. Awake and alert. Chart was reviewed Denies chest pain, SOB or palpitations States that she was on Metoprolol 25 mg in am and 50 mg in evening since September and before then, she was on Amlodipine 2.5 mg once a day and this was substituted with Metoprolol - Current Medication List Current Medications: Active Medications Acetaminophen (Tylenol Suppository -) 650 mg [place] Q6H PRN PRN Reason: FEVER OR PAIN Amlodipine Besylate (Norvasc -) 2.5 mg PO DAILY [facility] Last Admin: 02/05/17 09:33 Dose: 2.5 mg Aspirin (Asa -) 81 mg PO DAILY [facility] Last Admin: 02/05/17 09:33 Dose: 81 mg Calcium Carbonate/Cholecalciferol (Os-Nabor 500+D -) 1 tab PO DAILY [facility] Last Admin: 02/05/17 09:33 Dose: 1 tab Dextrose/Sodium Chloride (D5-1/2ns -) 1,000 mls @ 42 mls/hr IV ASDIR [facility] Last Admin: 02/05/17 06:16 Dose: 42 mls/hr Levothyroxine Sodium (Synthroid -) 112 mcg PO DAILY@0700 [facility] Last Admin: 02/05/17 06:16 Dose: 112 mcg Metoprolol Tartrate (Lopressor -) 25 mg PO BID [facility] - Objective Vital Signs: Vital Signs Temperature 98.4 F 02/05/17 06:00 Pulse Rate 100 H 02/05/17 06:00 Respiratory Rate 18 02/05/17 06:00 Blood Pressure 136/82 02/05/17 06:00 O2 Sat by Pulse Oximetry (%) 100 02/04/17 20:28 Neck: Yes: Supple Cardiovascular: Yes: Regular Rate and Rhythm, Tachycardia, S1, S2 Respiratory: Yes: CTA Bilaterally Gastrointestinal: Yes: Normal Bowel Sounds, Soft. No: Tenderness Edema: No Neurological: Yes: WNL Additional Findings/Remarks: - Review of Systems Constitutional: denies: Chills, Fever Cardiovascular: denies: Chest Pain, Palpitations, Shortness of Breath Respiratory: denies: Cough, Hemoptysis, Orthopnea, PND, SOB, SOB on Exertion Gastrointestinal: denies: Abdominal Pain, Constipation, Diarrhea, Melena, Nausea , Rectal Bleeding, Vomiting Musculoskeletal: denies: Joint Pain Neurological: reports: Change in Speech, Confusion. denies: Dizziness, Headache , Seizure, Syncope, Weakness Labs: CBC, BMP 02/05/17 07:00 02/05/17 07:00 Problem List - Problems (1) Altered mental status Code(s): R41.82 - ALTERED MENTAL STATUS, UNSPECIFIED Qualifiers: Altered mental status type: unspecified Qualified Code(s): R41.82 - Altered mental status, unspecified (2) H/O thyroidectomy Code(s): E89.0 - POSTPROCEDURAL HYPOTHYROIDISM (3) Hypertension Code(s): I10 - ESSENTIAL (PRIMARY) HYPERTENSION Qualifiers: Hypertension type: essential hypertension (4) Thyroid cancer Code(s): C73 - MALIGNANT NEOPLASM OF THYROID GLAND Assessment/Plan 1. Altered mental status - now back to normal, possibly due to hypertensive encephalopathy (transient) 2. HTN/hypertensive cardiovascular disease 3. Cerebrovascular disease 4. History of thyroid cancer s/p thyroidectomy PLAN: 1. Continue Amlodipine 2.5 mg once a day and restart Metoprolol Tartrate at 25 mg BID 2. Neuro input noted 3. Continue ASA 4. Continue thyroid replacement therapy 5. Continue monitor neuro status Further plans are to follow. Discharge planning cardiac standpoint and follow up with Dr. Wing Gregg as outpatient Nikita Cruz MD
--- NOTE | 2017-02-05 10:39 | DS ---
Physical Exam: SUBJECTIVE: Patient seen and examined at bedside. Denies all c/o presently. OBJECTIVE: Vital Signs Period Temp Pulse Resp BP Sys/Stevens Pulse Ox Last 24 Hr 98.1 F-99.2 F 64-100 16-20 119-144/72-82 100-100 PHYSICAL EXAM GENERAL: The patient is awake, alert, and fully oriented, in no acute distress. HEAD: Normal with no signs of trauma. LUNGS: Breath sounds equal, clear to auscultation bilaterally, no wheezes, no crackles, no accessory muscle use. HEART: Regular rate and rhythm, S1, S2 without murmur, rub or gallop. ABDOMEN: Soft, nontender, nondistended, normoactive bowel sounds. EXTREMITIES: 2+ pulses, warm, well-perfused, no edema. NEUROLOGICAL: Cranial nerves II through XII grossly intact. Normal speech, gait steady. PSYCH: Normal mood, normal affect. SKIN: Warm, dry, normal turgor, no rashes or lesions noted LABS Laboratory Results - last 24 hr 02/05/17 02/05/17 07:00 07:00 WBC 10.2 H D RBC 4.22 Hgb 13.2 Hct 38.4 MCV 91.1 MCH 31.3 MCHC 34.4 RDW 13.6 Plt Count 287 MPV 6.7 L Neutrophils % 74.7 Lymphocytes % 14.4 D Monocytes % 9.9 Eosinophils % 0.2 Basophils % 0.8 Sodium 136 Potassium 4.4 Chloride 100 Carbon Dioxide 24 Anion Gap 12 BUN 9 D Creatinine 0.7 Random Glucose 117 H Calcium 9.0 HOSPITAL COURSE: Date of Admission:02/03/17 Date of Discharge: 02/05/17 Minutes to complete discharge: 35 Discharge Summary Reason For Visit: ALTERED MENTAL STATUS Current Active Problems Altered mental status (Acute) Hematuria (Acute) Hyponatremia (Acute) Thyroid cancer (Acute) Hospital Course: This is a 81 y/o woman with a past medical history of Hypertension, Thyroid Ca ( s/p Thyroidectomy, RTX, 2012). BIBA from home with family for AMS. Per patient' s daughter, patient was fine earlier in the day, went to orthodoxy in the morning, last known well at 1300. Patient's daughter reported, other family member spoke with patient on the phone around 16:30, and patient's speech seemed repetitive and nonsensical. When other family member arrived to patient's residence, patient was found in bed disoriented. Of note, the patient's niece reported that the patient had difficulty ambulating to the bathroom, needing assistance which is not patient's baseline. Patient's daughter reported, last month the patient was placed on Xanax for Insomnia but the patient stopped taking it " made her feel funny". Per daughter, patient was taking Prozac for ?Depression. She reported the patient also had possible adjustments recently to her BP meds by her Automation Qa Tester. The family reports that the patient did not take her medications on day of admission. 1. AMS - Resolved - CTH: No acute intracranial process - MRI- extensive ischemic changes to boaz and white matter - Ruled out for RI - Neurology 2. Dizziness/lightheadedness - Resolved - Telemetry monitoring- no events during hospital stay 3. HTN - Elevated at 174/101 on arrival, currently 136/82 - Resume home Norvasc - Add metoprolol tartrate 25mg PO bid for rate control 4. Microscopic hematuria - Seen on prior admission in 09/2016 - Outpatient urology evaluation 4. S/p thyroidectomy - Continue Levothyroxine Condition: Stable - Instructions Diet, Activity, Other Instructions: Eat a diet low in sodium. Read food labels to calculate sodium. Keep sodium levels below 2 grams (2000mg) every day. We are changing your blood pressure medications as follows: Metoprolol tartrate 25mg twice daily. Once in the morning and once at night. Norvasc 2.5mg orally every morning. Keep appointment with Dr. Hilario as previously scheduled. Dr. Hilario is aware of the changes to your blood pressure medication. If you have concerns or issues regarding your blood pressure medication, you can call him for an earlier appointment. You had some blood in your urine that should be further evaluated by your primary doctor. Return to the ER for any headaches, nausea, vomiting, confusion, chest pain, dizziness or any other concerns. Thank you for choosing us to provide for your medical needs. Referrals: Scott Shaw MD [Primary Care Provider] - Disposition: HOME - Home Medications Comprehensive Discharge Medication List: Ambulatory Orders Medication Instructions Recorded Aspirin [ASA -] 81 mg PO DAILY 09/20/16 Ca/D3/Mag#11/Zinc/Customer Service Consultant/Boaz/Bor 1 PO DAILY 09/20/16 [Caltrate 600+D Plus Tablet] Levothyroxine [Synthroid -] 112 mcg PO DAILY 09/20/16 Amlodipine Besylate [Norvasc -] 2.5 mg PO DAILY #90 tab 02/05/17 Levothyroxine [Synthroid -] 112 mcg PO DAILY@0700 tablet 02/05/17 Metoprolol Tartrate [Lopressor -] 25 mg PO BID tablet 02/05/17 This patient is new to me today: Yes Date on this admission: 02/05/17 Emergency Visit: Yes ED Registration Date: 02/03/17 Care time: The patient presented to the Emergency Department on the above date and was hospitalized for further evaluation of their emergent condition. Critical Care patient: No - Discharge Referral Referred to [facility] No
== END 2017-02-05 11:46 | disposition home or self-care (01) ==
LOC: JER 18:03 → JERBED 20:09 → INTOOBSV 20:09 → OBSVTOIN 20:09 → UNDOADMOB 20:09 → JERBED 20:40 → J4W 02-04 00:01
PROVIDERS: ADMIT Internal Medicine; ATTEND Nurse Practitioner Family
PROC: 3E033GC Introduction of Other Therapeutic Substance into Peripheral Vein, Percutaneous Approach (ICD-10-PCS; principal; 2017-02-03)
PROC: 3E0337Z Introduction of Electrolytic and Water Balance Substance into Peripheral Vein, Percutaneous Approach (ICD-10-PCS; 2017-02-03)
DX: R41.82 Altered mental status, unspecified (principal); R42 Dizziness and giddiness; I10 Essential (primary) hypertension; C73 Malignant neoplasm of thyroid gland; E89.0 Postprocedural hypothyroidism; Z79.82 Long term (current) use of aspirin; E87.1 Hypo-osmolality and hyponatremia; R31.9 Hematuria, unspecified
CPT/HCPCS: 36415; 70450-TC; 70551-TC; 71010-TC; 80048; 80053; 80307; 81003; 81015; 83605; 83735; 84100; 84443; 84484; 85025; 87040; 87086; 93005; 93010; 99282-25; G0378

== ENCOUNTER 2018-06-21 07:51 | Day surgery (SDC) | payer OTHER, MEDICARE ==
[2018-06-21 08:27] VITALS: BMI 27.3
[2018-06-21] MEDS ORDERED: ISOSULFAN BLUE 10 MG/ML VIAL SQ ONE (12:19)
[2018-06-21] MEDS ORDERED: LIDOCAINE HCL 1%, 10 MG/ML (20ML VIAL) ONE (12:19)
--- NOTE | 2018-06-21 12:22 | HP ---
History & Physical Update - History History: No Change - Physical Physical: No Change - Assessment Assessment: No Change - Plan Plan: No Change
[2018-06-21] MEDS ORDERED: LIDOCAINE HCL/PF 2% SDV 5ML VIAL ONE (12:29)
[2018-06-21] MEDS ORDERED: MIDAZOLAM HCL 2 MG/2 ML SINGLE DOSE VIAL ONE (12:29)
[2018-06-21] MEDS ORDERED: PROPOFOL 20 ML ONE ×3 (12:29→13:57)
[2018-06-21] MEDS ORDERED: DEXAMETHASONE SOD PHOSPHATE 4 MG/1 ML VIAL ONE (12:29)
[2018-06-21] MEDS ORDERED: ceFAZolin SODIUM 1 GM VIAL ONE (12:30)
[2018-06-21] MEDS ORDERED: ceFAZolin SODIUM 1 GM VIAL IVPB ONE (12:57)
[2018-06-21] MEDS ORDERED: ePHEDrine SULFATE 50 MG/1 ML AMPULE ONE (12:59)
[2018-06-21] MEDS ORDERED: PROMETHAZINE HCL 25 MG/1 ML VIAL IVPUSH PRN (14:21)
[2018-06-21] MEDS ORDERED: ONDANSETRON 4 MG/2 ML VIAL IVPUSH PRN (14:21)
[2018-06-21] MEDS ORDERED: MEPERIDINE HCL CARPU-JECT 25 MG/1 ML DISP.SYRIN IVPUSH PRN (14:25)
[2018-06-21] MEDS ORDERED: ACETAMINOPHEN 500 MG TABLET (FP) PO PRN (14:25)
[2018-06-21] MEDS ORDERED: MEPERIDINE HCL CARPU-JECT 50 MG/1 ML DISP.SYRIN IM PRN (14:26)
[2018-06-21] MEDS ORDERED: LACTATED RINGERS SOLUTION 1,000 ML/1,000 ML INFUS.BAG IV SCH (14:30)
[2018-06-21] MEDS ORDERED: LACTATED RINGERS SOLUTION 1,000 ML IV SCH (14:30)
[2018-06-21] MEDS ORDERED: ACETAMINOPHEN INJECTION 100 ML IVPB ONE (15:14)
[2018-06-21] MEDS ORDERED: ACETAMINOPHEN 1000 MG/100 ML VIAL (NON FORMULARY) IVPB ONE (15:15)
[2018-06-21] MEDS ORDERED: MORPHINE SULFATE 2 MG/ML VIAL IVPUSH PRN (15:51)
[2018-06-21] MEDS ORDERED: PROMETHAZINE HCL 25 MG/1 ML VIAL IVPB PRN (15:59)
--- NOTE | 2018-06-21 16:19 | OP ---
DATE OF OPERATION: 06/21/2018 PREOPERATIVE DIAGNOSIS: Right breast cancer. POSTOPERATIVE DIAGNOSIS: Right breast cancer. PROCEDURE: Right total mastectomy and sentinel node biopsy. SURGEON: Cici Weiss MD ANESTHESIA: General. ESTIMATED BLOOD LOSS: 100 mL. DRAINS: RACHELLE x2. COMPLICATIONS: None. This is a sterile procedure. INDICATION FOR PROCEDURE: Patient presented with a palpable mass in the right breast 10 to 11 o'clock location 3 cm from the nipple and was a suspicious mammogram and ultrasound findings. She had an ultrasound-guided core biopsy that shows ER/ND positive infiltrating ductal carcinoma. She had a workup that showed no evidence of metastatic disease. We discussed options of lumpectomy versus a mastectomy. The decision was to go ahead with a mastectomy as well as sentinel node biopsy. The procedure was discussed with her and all of her questions answered. PROCEDURE IN DETAIL: Patient was brought to [facility] in [place], taken first to Nuclear Medicine where I injected technetium sulfur colloid as an intradermal injection at the right breast 10 o'clock areolar border and the second injection intradermally over the tumor in the right 10 o'clock location. She was then brought up to the operating room, and after induction of general anesthesia and IV antibiotics, 5 mL of isosulfan blue dye was injected into the right subareolar plexus by me, and the breast was massaged for 5 minutes. The right breast and axilla were then prepped and draped in the usual sterile fashion. An incision was made as an ellipse to include the nipple-areolar complex for starting of a mastectomy. However, first, a sentinel node procedure was performed where I sharply incised into the clavipectoral fascia and identified 3 sentinel lymph nodes that were hot but not blue. There was no other blue dye or radioactivity within the axilla. There were other lymph nodes that I initially thought were hot. Ex vivo had no counts and was sent as left non-sentinel nodes. There were other lymph nodes palpable but not pathologic feeling, and there was no other blue dye or radioactivity. Therefore, once hemostasis was assured, the mastectomy was completed. Superior and inferior mediolateral flaps were raised, and the breast was reflected off the pectoralis muscle, tacked with a stitch at the lateral EGD, and sent to Pathology for permanent sections. Hemostasis was assured with electrocautery. Through 2 separate stab wounds, 10-mm RACHELLE drains were inserted into the mastectomy flap and secured to the skin with a 2-0 nylon stitch. The incision was then approximated with skin stapler. A sterile dressing of Vaseline gauze, Telfa, fluffs, as well as ABD was applied, as well as a surgical bra. She tolerated the procedure well, was extubated on the operating room table, and taken to recovery in good condition. Maya [id number]
[2018-06-21] MEDS ORDERED: MELATONIN 5 MG TABLETS PO PRN (18:52)
[2018-06-21] MEDS: amLODIPine BESYLATE 2.5 MG TABLET (FP) PO SCH (18:58)
[2018-06-21] MEDS: CEFAZOLIN 1 GM/D5W 1 GM/50 ML BAG IVPB SCH (21:47)
[2018-06-22] MEDS: CEFAZOLIN 1 GM/D5W 1 GM/50 ML BAG IVPB SCH (06:31)
[2018-06-22] MEDS ORDERED: LEVOTHYROXINE NA 112 MCG TABLET (FP) PO SCH (07:00)
[2018-06-22 08:57] VITALS: BP 109/49; PULSE 91; TEMP 98.1
--- NOTE | 2018-06-22 09:38 | PN ---
Progress Note (short form) - Note Progress Note: pod 1 s/p R mastectomy SLN afeb, vss, RACHELLE left draining, RACHELLE right not as much. there is swelling of the mastectomy area secondary to RACHELLE clogging over night but now functioning. will leave in place. d/c today. she knows to see me in the office
[2018-06-22] MEDS: amLODIPine BESYLATE 2.5 MG TABLET (FP) PO SCH (10:18)
--- NOTE | 2018-06-27 15:20 | PATH ---
Surgical Pathology Report Patient Name: MICHELE SNOWDEN [facility]. Rec. #: [id number] /Age/Gender: 1935 (Age: 82) / F Account: [id number] Location: AMBULATORY SURG Taken: 06/21/2018 Received: 06/24/2018 Reported: 06/27/2018 Physicians: Cici Weiss M.D. Specimen(s) Received A: RIGHT AXILLARY SENTINEL LYMPH NODE #1 B: RIGHT AXILLARY SENTINEL LYMPH NODE #2 C: RIGHT AXILLARY SENTINEL LYMPH NODE #3 D: RIGHT AXILLARY NON SENTINEL LYMPH NODE E: RIGHT BREAST, MASTECTOMY Clinical History Breast cancer Final Diagnosis A. RIGHT AXILLARY SENTINEL LYMPH NODE #1 HOT NOT BLUE, EXCISION: TWO LYMPH NODES, NEGATIVE FOR METASTATIC CARCINOMA (0/2). B. RIGHT AXILLARY SENTINEL LYMPH NODE #2 HOT NOT BLUE, EXCISION: ONE OUT OF THREE LYMPH NODES, POSITIVE FOR METASTATIC CARCINOMA (1/3). LARGEST TUMOR DEPOSIT MEASURES 5 MM. EXTRANODAL TUMOR EXTENSION IDENTIFIED. C. RIGHT AXILLARY SENTINEL LYMPH NODE #3 HOT NOT BLUE, EXCISION: TWO LYMPH NODES, NEGATIVE FOR METASTATIC CARCINOMA (0/2). D. RIGHT AXILLARY NON-SENTINEL LYMPH NODE, EXCISION: THREE OF FIVE LYMPH NODES, POSITIVE FOR METASTATIC CARCINOMA (3/5). LARGEST TUMOR DEPOSIT MEASURES 7 MM. EXTRANODAL TUMOR EXTENSION IDENTIFIED. SEPARATE CARCINOMA NODULES WITH NO LYMPHOID TISSUE PRESENT. E. RIGHT BREAST, MASTECTOMY: INVASIVE CARCINOMA, POORLY DIFFERENTIATED (TUBULE SCORE 3/3, NUCLEAR GRADE: 3/3, MITOTIC SCORE: 3/3, TOTAL SCORE 9/9, CARLITOS GRADE 3), WITH MIXED DUCTAL AND LOBULAR FEATURES, MEASURING 3.5 CM IN GREATEST DIMENSION, GROSSLY. CARCINOMA IN SITU PRESENT, HIGH NUCLEAR GRADE, SOLID AND COMEDO TYPES, WITH MIXED DUCTAL AND LOBULAR FEATURES, AND ASSOCIATED NECROSIS AND CALCIFICATIONS. SURGICAL MARGINS ARE UNINVOLVED BY CARCINOMA. INVASIVE CARCINOMA IS AT 1.7CM FROM THE CLOSEST (POSTERIOR) MARGIN. DCIS IS AT 1CM FROM THE CLOSEST (POSTERIOR) MARGIN. LYMPHOVASCULAR INVASION IDENTIFIED. PRIOR BIOPSY SITE WITH REACTIVE CHANGES PRESENT. PATHOLOGIC STAGE (pTNM): pT2, pN2a SEE ALSO INVASIVE CARCINOMA CASE SUMMARY BELOW. Comment: Immunohistochemical stained slides show the following results: p120 shows a mixed strong cytoplasmic staining pattern and membranous staining pattern. E-cadherin shows decreased membranous expression. The morphology and immunostain patterns are best characterized as carcinoma with mixed ductal and lobular features. Immunostain P63 is negative in the invasive component. Immunohistochemistry stains P120 and E-Cadherin performed at [place], [place] ([id number]) interpreted at [facility]. Immunohistochemistry stain P63 performed and interpreted at [facility]. Positive and negative controls (internal if applicable) show appropriate results. Comments Breast Invasive Carcinoma: Surgical Pathology Case Summary (Based on AJCC TNM 8 th edition) Procedure _x_ Total mastectomy (including nipple-sparing and skin-sparing mastectomy) Specimen Laterality _x_ Right Tumor Size Greatest dimension of largest invasive focus >1 mm (specify exact measurement) (millimeters): 35 mm Histologic Type _x_ Invasive carcinoma with mixed ductal and lobular features Histologic Grade ([place] Histologic Score) Glandular (Acinar)/Tubular Differentiation _x_ Score 3 (<10% of tumor area forming glandular/tubular structures) Nuclear Pleomorphism _x_ Score 3 Mitotic Rate _x_ Score 3 Overall Grade _x_ Grade 3 (scores of 8 or 9) Tumor Focality _x_ Single focus of invasive carcinoma Carcinoma In Situ (CIS) _x_ Carcinoma in situ with mixed ductal and lobular features is present in specimen _x_ Positive for EIC Carcinoma in situ present at random section from lower outer quadrant. Margins Invasive Carcinoma Margins _x_ Uninvolved by invasive carcinoma Distance from closest margin (millimeters): 17 mm Closest margin: posterior margin Carcinoma in situ (CIS) Margins _x_ Uninvolved by CIS Distance from closest margin (millimeters): 10mm Closest margin: posterior margin Regional Lymph Nodes Number of Lymph Nodes with Macrometastases (>2 mm): 4 Size of Largest Metastatic Deposit (millimeters): 7mm Extranodal Extension: _x_ Present Number of Lymph Nodes Examined: 12 Number of Sargeant Nodes Examined: 4 Treatment Effect _x_ No known presurgical therapy Lymphovascular Invasion _x_ Present Pathologic Stage Classification (pTNM, AJCC 8th Edition) Primary Tumor (Invasive Carcinoma) (pT) _x_ pT2: Tumor >20 mm but =50 mm in greatest dimension Regional Lymph Nodes (pN) Category (pN) _x_ pN2a: Metastases in 4 to 9 axillary lymph nodes (at least 1 tumor deposit larger than 2.0 mm) Biomarker Studies Results of ER and HI studies performed on this specimen (block# E1) at [facility] are as follows: ER (clone [id number] mouse monoclonal antibody by [employer]): 70 % nuclear staining with strong and moderate intensity (Positive). HI (clone16 mouse monoclonal antibody by [employer]): ~5 % nuclear staining with weak intensity (weakly positive). Results of Her2 (IHC) & Ki-67 studies performed on this specimen (block#E1) at [place], [place] ([id number]) are as follows: Her2 IHC (EP3 from [employer], formerly known as [id number], using [employer] Polymer Refine detection kit): Negative (0) Ki67: 40% (high proliferative index) Formalin fixation time exceeds current ASCO/CAP recommendations for ER,HI & Her2 testing (6-72 hrs). Negative results must be interpreted with caution as false negatives may occur. Time to formalin fixation is not given. Electronically Signed Estella Adam M.D. Gross Description A. Received in formalin, labeled "right axillary sentinel lymph node #1 hot not blue" is an irregular portion of soft tissue measuring 2.5 x 2.5 x 1cm, which may contain two possible lymph nodes. The specimens are entirely submitted in 2 cassettes 1. fibroadipose tissue 2. possible two nodes. B. Received in formalin, labeled "right axillary sentinel lymph node #2 hot not blue" are three nodular lesions. The largest node measures to 1.0cm in greatest dimension. The specimens are entirely submitted in 2 cassettes 1. one node, bisected 2. two nodes. . C. Received in formalin, labeled "right axillary sentinel lymph node #3 hot not blue" are two nodular lesions. The larger node measures to 0.3cm in greatest dimension. The specimens are entirely submitted in 2 cassettes 1. one node 2. one node. D. Received in formalin, labeled "right axillary non-sentinel lymph node" is an irregular portion of soft tissue which may contains possible 7 nodular lesions. The largest node measures up to 1.1cm in greatest dimension. The specimens are submitted in 4 cassettes 1. possible three nodes 2. possible three nodes. 3. one node, bisected. 4. The rest of the fibroadipose tissue. E. Received formalin, labeled "right mastectomy stitch marcelo lateral edge of the skin," is a 433 gram, 16.0 x 15.0 x 5.0 cm. right mastectomy specimen with a long suture marking the lateral aspect of the specimen, per the surgeon. There is a portion of skin with nipple present, measuring 14.5 x 5cm. The skin surface is unremarkable. The posterior margin is inked black, the medial margin is inked green, and the lateral soft tissue margin is inked blue. The specimen is serially sectioned from lateral to medial. Sectioning reveals a 3.5 x 3.4 x 2.5 centimeter ill-defined mass, in a back ground of dense parenchyma. The remaining breast displays scattered white fibrous tissue. This mass measures 1.7 cm to posterior margin, 2 cm to skin, more than 2 cm to superior margin and inferior margin, and more than 4 cm to medial margin and lateral margins. Apricot Packer sections are submitted in 14 cassettes as follows: 1--mass; 2. mass with posterior margin 3. closest inferior margin (inked orange) 4. mass with skin 5. closest superior margin (inked red) 6. medial margin (inked green) 7. lateral margin (inked blue). 8. Nipple 9. additional section from mass to posterior margin 10. tumor with dense parenchyma 11. upper outer quadrant 12. lower outer quadrant 13. lower inner quadrant 14. lower outer quadrant Time from tissue taken to place in formalin: Not given Total formalin fixation time: Approximately 80 hours. HAYLEY/06/24/2018 bladimir/06/24/2018
== END 2018-06-22 12:00 | disposition home health service (06) ==
LOC: UNDOADMIN 07:51 → JASUSAT 07:51 → JSAMEDAYSX 07:51 → EDSTATUS 11:00 → J6S 18:16 → JASUSAT 06-22 12:00
PROVIDERS: ATTEND Surgery
PROC: C71L1ZZ Planar Nuclear Medicine Imaging of Upper Chest Lymphatics using Technetium 99m (Tc-99m) (ICD-10-PCS; 2018-06-21)
PROC: 0HBT0ZZ Excision of Right Breast, Open Approach (ICD-10-PCS; principal; 2018-06-21 11:00)
PROC: 07B50ZX Excision of Right Axillary Lymphatic, Open Approach, Diagnostic (ICD-10-PCS; 2018-06-21 11:00)
DX: C50.911 Malignant neoplasm of unspecified site of right female breast (principal); C77.3 Secondary and unspecified malignant neoplasm of axilla and upper limb lymph nodes; Z17.0 Estrogen receptor positive status [ER+]
CPT/HCPCS: 82962; 88307-TC; 88342-TC; 94760; A9541; J0131

== ENCOUNTER 2018-07-24 07:15 | Day surgery (SDC) | payer OTHER, MEDICARE ==
[2018-07-24] MEDS ORDERED: SODIUM CHLORIDE 250 ML IV ONE ×2 (08:00→10:30)
[2018-07-24] MEDS ORDERED: DEXAMETHASONE SODIUM PHOSPHATE 10 MG in SODIUM CHLORIDE 50 ML IVPB ONE (08:30)
[2018-07-24] MEDS ORDERED: PALONOSETRON HCL 0.25 MG/5 ML VIAL IVPUSH ONE (08:30)
[2018-07-24] MEDS ORDERED: FOSAPREPITANT DIMEGLUMINE 150 MG in SODIUM CHLORIDE 145 ML IVPB ONE (08:30)
[2018-07-24 08:55] VITALS: BMI 23.4
[2018-07-24] MEDS ORDERED: DOCETAXEL IV ONE (09:00)
[2018-07-24] MEDS ORDERED: SODIUM CHLORIDE IV ONE (09:00)
[2018-07-24 09:37] LABS: BASO % 0.4 % (0-2.0); HEMOGLOBIN 12.2 GM/dL (10.7-15.3); LYMPH % 11.7 % (8-40); MCHC 34.9 g/dl (32.0-36.0); MEAN CELL VOLUME 94.7 fl (80-96); MEAN PLT VOLUME 8.2 fl (7.5-11.1); MONO % 7.2 % (3.8-10.2); NEUT % 80.7 % (42.8-82.8); PLATELET COUNT 287 K/MM3 (134-434); RDW 14.4 % (11.6-15.6); WHITE BLOOD COUNT 6.5 K/mm3 (4.0-10.0)
[2018-07-24] MEDS ORDERED: SODIUM CHLORIDE IVPB ONE (10:00)
[2018-07-24] MEDS ORDERED: CYCLOPHOSPHAMIDE IVPB ONE (10:00)
[2018-07-24 10:02] LABS: ALBUMIN 4.2 g/dl (3.4-5.0); ALK PHOS 94 U/L (45-117); ANION GAP 9 MMOL/L (8-16); BILIRUBIN,TOTAL 0.5 mg/dL (0.2-1); BLOOD UREA NITROGEN 18 mg/dL (7-18); CALCIUM 8.9 mg/dL (8.5-10.1); CHLORIDE 103 mmol/L (98-107); CO2 24 mmol/L (21-32); CREATININE 0.8 mg/dL (0.55-1.3); GLUCOSE,RANDOM 115 mg/dL (74-106); MAGNESIUM 2.2 mg/dL (1.8-2.4); POTASSIUM 4.3 mmol/L (3.5-5.1); PREALBUMIN 23.2 mg/dl (20-40); SGOT/AST 15 U/L (15-37); SGPT/ALT 19 U/L (13-61); SODIUM 136 mmol/L (136-145); TOT PROT 7.6 g/dl (6.4-8.2)
[2018-07-24] MEDS ORDERED: MIDAZOLAM HCL 2 MG/2 ML SINGLE DOSE VIAL ONE (10:24)
[2018-07-24] MEDS ORDERED: ACETAMINOPHEN 325 MG TABLET (FP) PO ONE (13:10)
[2018-07-24 17:09] VITALS: TEMP 97.4
[2018-07-24] MEDS ORDERED: PORTA CATH FLUSH 10 ML IVPUSH ONE (17:13)
[2018-07-24 17:54] VITALS: BP 110/68; PULSE 80
== END 2018-07-24 17:55 | disposition home or self-care (01) ==
LOC: JRADIR 07:15 → J7W 13:00 → JRADIR 17:55
PROVIDERS: ATTEND Internal Medicine Hematology & Oncology
PROC: 05H633Z Insertion of Infusion Device into Left Subclavian Vein, Percutaneous Approach (ICD-10-PCS; principal; 2018-07-24)
PROC: B517ZZA Fluoroscopy of Left Subclavian Vein, Guidance (ICD-10-PCS; 2018-07-24)
PROC: 3E03305 Introduction of Other Antineoplastic into Peripheral Vein, Percutaneous Approach (ICD-10-PCS; 2018-07-24)
DX: Z51.11 Encounter for antineoplastic chemotherapy (principal); C50.919 Malignant neoplasm of unspecified site of unspecified female breast
CPT/HCPCS: 36561; 76937; 96361; 96367; 96375; 96413; 96417; C1788; 36415; 77001-TC-FY; 80053; 83735; 84134; 85025; J1453; J2469; J9070; J9171

== ENCOUNTER 2018-07-25 05:45 | Day surgery (SDC) | payer OTHER, MEDICARE ==
[2018-07-25] MEDS ORDERED: PEGFILGRASTIM 6 MG/0.6 ML DISP.SYRIN SQ ONE (08:00)
[2018-07-25 17:24] VITALS: BP 121/59; PULSE 83; TEMP 98.1
== END 2018-07-25 18:07 | disposition home or self-care (01) ==
LOC: JONCCHEMO 05:45 → J7W 17:15 → JONCCHEMO 18:07
PROVIDERS: ATTEND Internal Medicine Hematology & Oncology
PROC: 3E013GC Introduction of Other Therapeutic Substance into Subcutaneous Tissue, Percutaneous Approach (ICD-10-PCS; principal; 2018-07-25)
DX: Z51.11 Encounter for antineoplastic chemotherapy (principal); C50.919 Malignant neoplasm of unspecified site of unspecified female breast; Z76.89 Persons encountering health services in other specified circumstances
CPT/HCPCS: 96372; J2505

== ENCOUNTER 2018-08-14 05:55 | Day surgery (SDC) | payer OTHER, MEDICARE ==
[2018-08-14] MEDS ORDERED: SODIUM CHLORIDE 250 ML IV ONE ×2 (08:00→10:30)
[2018-08-14] MEDS ORDERED: FOSAPREPITANT DIMEGLUMINE 150 MG in SODIUM CHLORIDE 145 ML IVPB ONE (08:30)
[2018-08-14] MEDS ORDERED: DEXAMETHASONE SODIUM PHOSPHATE 10 MG in SODIUM CHLORIDE 50 ML IVPB ONE (08:30)
[2018-08-14] MEDS ORDERED: PALONOSETRON HCL 0.25 MG/5 ML VIAL IVPUSH ONE (08:30)
[2018-08-14] MEDS ORDERED: DOCETAXEL IV ONE (09:00)
[2018-08-14] MEDS ORDERED: SODIUM CHLORIDE IV ONE (09:00)
[2018-08-14] MEDS ORDERED: CYCLOPHOSPHAMIDE IVPB ONE (10:00)
[2018-08-14] MEDS ORDERED: SODIUM CHLORIDE IVPB ONE (10:00)
[2018-08-14 10:14] LABS: BASO % 0.2 % (0-2.0); HEMATOCRIT 34.9 % (32.4-45.2); HEMOGLOBIN 11.6 GM/dL (10.7-15.3); LYMPH % 4.4 % (8-40); MCH 31.3 pg (25.7-33.7); MCHC 33.3 g/dl (32.0-36.0); MEAN CELL VOLUME 94.2 fl (80-96); MEAN PLT VOLUME 6.8 fl (7.5-11.1); MONO % 8.1 % (3.8-10.2); NEUT % 87.3 % (42.8-82.8); PLATELET COUNT 496 K/MM3 (134-434); RDW 14.4 % (11.6-15.6); WHITE BLOOD COUNT 11.5 K/mm3 (4.0-10.0)
[2018-08-14 10:44] LABS: ALBUMIN 3.8 g/dl (3.4-5.0); BILIRUBIN,DIRECT 0.1 mg/dL (0.0-0.2); BILIRUBIN,TOTAL 0.3 mg/dL (0.2-1); MAGNESIUM 2.2 mg/dL (1.8-2.4); TOT PROT 7.3 g/dl (6.4-8.2)
[2018-08-14 10:54] LABS: ALBUMIN 3.9 g/dl (3.4-5.0); ALK PHOS 105 U/L (45-117); ANION GAP 8 MMOL/L (8-16); BILIRUBIN,TOTAL 0.4 mg/dL (0.2-1); BLOOD UREA NITROGEN 17 mg/dL (7-18); CALCIUM 8.7 mg/dL (8.5-10.1); CHLORIDE 101 mmol/L (98-107); CO2 25 mmol/L (21-32); CREATININE 0.9 mg/dL (0.55-1.3); GLUCOSE,RANDOM 106 mg/dL (74-106); POTASSIUM 4.7 mmol/L (3.5-5.1); SGOT/AST 19 U/L (15-37); SGPT/ALT 34 U/L (13-61); SODIUM 134 mmol/L (136-145); TOT PROT 7.3 g/dl (6.4-8.2)
[2018-08-14 16:59] VITALS: BP 131/64; PULSE 76; TEMP 97.3
[2018-08-14] MEDS ORDERED: PORTA CATH FLUSH 10 ML IVPUSH ONE (16:59)
== END 2018-08-14 16:00 | disposition home or self-care (01) ==
LOC: JONCCHEMO 05:55 → J7W 11:06 → JONCCHEMO 16:00
PROVIDERS: ATTEND Internal Medicine Hematology & Oncology
DX: Z51.11 Encounter for antineoplastic chemotherapy (principal); C50.919 Malignant neoplasm of unspecified site of unspecified female breast
CPT/HCPCS: 36415; 80053; 80076; 83735; 85025; 96361; 96367; 96375; 96413; 96417; J1453; J2469; J9070; J9171

== ENCOUNTER 2018-08-15 05:39 | Day surgery (SDC) | payer OTHER, MEDICARE ==
[2018-08-15] MEDS ORDERED: PEGFILGRASTIM 6 MG/0.6 ML DISP.SYRIN SQ ONE (08:00)
[2018-08-15 17:56] VITALS: BP 123/54; PULSE 77
[2018-08-15 18:05] VITALS: TEMP 98.5
== END 2018-08-15 18:17 | disposition home or self-care (01) ==
LOC: JONCCHEMO 05:39 → J7W 17:24 → JONCCHEMO 18:17
PROVIDERS: ATTEND Internal Medicine Hematology & Oncology
PROC: 3E013GC Introduction of Other Therapeutic Substance into Subcutaneous Tissue, Percutaneous Approach (ICD-10-PCS; principal; 2018-08-15)
DX: C50.919 Malignant neoplasm of unspecified site of unspecified female breast (principal); Z76.89 Persons encountering health services in other specified circumstances
CPT/HCPCS: 96372; J2505

== ENCOUNTER 2018-09-04 07:12 | Day surgery (SDC) | payer OTHER, MEDICARE ==
[2018-09-04] MEDS ORDERED: SODIUM CHLORIDE 250 ML IV ONE ×2 (09:00→12:00)
[2018-09-04] MEDS ORDERED: DEXAMETHASONE SODIUM PHOSPHATE 10 MG in SODIUM CHLORIDE 50 ML IVPB ONE (10:00)
[2018-09-04] MEDS ORDERED: PALONOSETRON HCL 0.25 MG/5 ML VIAL IVPUSH ONE (10:00)
[2018-09-04] MEDS ORDERED: FOSAPREPITANT DIMEGLUMINE 150 MG in SODIUM CHLORIDE 150 ML IVPB ONE (10:00)
[2018-09-04] MEDS ORDERED: SODIUM CHLORIDE IV ONE ×2 (10:30→13:00)
[2018-09-04] MEDS ORDERED: DOCETAXEL IV ONE ×2 (10:30→13:00)
[2018-09-04 11:11] LABS: BASO % 0.3 % (0-2.0); EOS % 0.1 % (0-4.5); HEMATOCRIT 31.8 % (32.4-45.2); HEMOGLOBIN 10.8 GM/dL (10.7-15.3); MCH 31.8 pg (25.7-33.7); MEAN CELL VOLUME 93.5 fl (80-96); MEAN PLT VOLUME 6.7 fl (7.5-11.1); MONO % 12.1 % (3.8-10.2); NEUT % 81.5 % (42.8-82.8); PLATELET COUNT 438 K/MM3 (134-434); RDW 15.7 % (11.6-15.6); WHITE BLOOD COUNT 11.2 K/mm3 (4.0-10.0)
[2018-09-04] MEDS ORDERED: CYCLOPHOSPHAMIDE IVPB ONE (11:30)
[2018-09-04] MEDS ORDERED: SODIUM CHLORIDE IVPB ONE (11:30)
[2018-09-04 11:39] LABS: ALBUMIN 3.8 g/dl (3.4-5.0); ALK PHOS 94 U/L (45-117); ANION GAP 10 MMOL/L (8-16); BILIRUBIN,TOTAL 0.4 mg/dL (0.2-1); BLOOD UREA NITROGEN 19 mg/dL (7-18); CALCIUM 8.5 mg/dL (8.5-10.1); CHLORIDE 98 mmol/L (98-107); CO2 22 mmol/L (21-32); CREATININE 0.8 mg/dL (0.55-1.3); GLUCOSE,RANDOM 111 mg/dL (74-106); POTASSIUM 4.6 mmol/L (3.5-5.1); SGOT/AST 22 U/L (15-37); SGPT/ALT 32 U/L (13-61); SODIUM 130 mmol/L (136-145); TOT PROT 6.8 g/dl (6.4-8.2)
[2018-09-04 11:45] LABS: ALBUMIN 3.9 g/dl (3.4-5.0); BILIRUBIN,DIRECT 0.1 mg/dL (0.0-0.2); BILIRUBIN,TOTAL 0.3 mg/dL (0.2-1); TOT PROT 6.8 g/dl (6.4-8.2)
[2018-09-04 18:21] VITALS: BP 105/60; PULSE 80; TEMP 981
[2018-09-04] MEDS ORDERED: PORTA CATH FLUSH 10 ML IVPUSH ONE (18:21)
== END 2018-09-04 17:00 | disposition home or self-care (01) ==
LOC: JONCCHEMO 07:12 → J7W 12:09 → JONCCHEMO 17:00
PROVIDERS: ATTEND Internal Medicine Hematology & Oncology
DX: Z51.11 Encounter for antineoplastic chemotherapy (principal); C50.919 Malignant neoplasm of unspecified site of unspecified female breast
CPT/HCPCS: 36415; 80053; 80076; 83735; 85025; 96361; 96367; 96375; 96413; 96417; J1453; J2469; J9070; J9171

== ENCOUNTER 2018-09-05 07:12 | Day surgery (SDC) | payer OTHER, MEDICARE ==
[2018-09-05] MEDS ORDERED: PEGFILGRASTIM 6 MG/0.6 ML DISP.SYRIN SQ ONE (10:00)
[2018-09-05 17:46] VITALS: BP 126/62; PULSE 84; TEMP 98.5
== END 2018-09-05 17:15 | disposition home or self-care (01) ==
LOC: JONCCHEMO 07:12 → J7W 16:50 → JONCCHEMO 17:15
PROVIDERS: ATTEND Internal Medicine Hematology & Oncology
PROC: 3E013GC Introduction of Other Therapeutic Substance into Subcutaneous Tissue, Percutaneous Approach (ICD-10-PCS; principal; 2018-09-05)
DX: C50.919 Malignant neoplasm of unspecified site of unspecified female breast (principal); Z76.89 Persons encountering health services in other specified circumstances
CPT/HCPCS: 96372; J2505

== ENCOUNTER 2018-09-25 07:10 | Day surgery (SDC) | payer OTHER, MEDICARE ==
[2018-09-25] MEDS ORDERED: SODIUM CHLORIDE 250 ML IV ONE ×2 (08:00→10:30)
[2018-09-25] MEDS ORDERED: FOSAPREPITANT DIMEGLUMINE 150 MG in SODIUM CHLORIDE 145 ML IVPB ONE (08:30)
[2018-09-25] MEDS ORDERED: PALONOSETRON HCL 0.25 MG/5 ML VIAL IVPUSH ONE (08:30)
[2018-09-25] MEDS ORDERED: DEXAMETHASONE SODIUM PHOSPHATE 10 MG in SODIUM CHLORIDE 50 ML IVPB ONE (08:30)
[2018-09-25] MEDS ORDERED: SODIUM CHLORIDE IV ONE ×2 (09:00→13:00)
[2018-09-25] MEDS ORDERED: DOCETAXEL IV ONE ×2 (09:00→13:00)
[2018-09-25 09:52] LABS: BASO % 0.4 % (0-2.0); HEMATOCRIT 30.6 % (32.4-45.2); HEMOGLOBIN 10.5 GM/dL (10.7-15.3); LYMPH % 6.4 % (8-40); MCH 32.3 pg (25.7-33.7); MCHC 34.4 g/dl (32.0-36.0); MEAN PLT VOLUME 6.2 fl (7.5-11.1); NEUT % 82.2 % (42.8-82.8); PLATELET COUNT 416 K/MM3 (134-434); RBC 3.25 M/mm3 (3.60-5.2); RDW 17.1 % (11.6-15.6); WHITE BLOOD COUNT 6.4 K/mm3 (4.0-10.0)
[2018-09-25] MEDS ORDERED: CYCLOPHOSPHAMIDE IVPB ONE (10:00)
[2018-09-25] MEDS ORDERED: SODIUM CHLORIDE IVPB ONE (10:00)
[2018-09-25 10:25] LABS: ALBUMIN 3.8 g/dl (3.4-5.0); ALK PHOS 101 U/L (45-117); ANION GAP 10 MMOL/L (8-16); BILIRUBIN,DIRECT 0.2 mg/dL (0.0-0.2); BILIRUBIN,TOTAL 0.5 mg/dL (0.2-1); BLOOD UREA NITROGEN 16 mg/dL (7-18); CALCIUM 9.1 mg/dL (8.5-10.1); CHLORIDE 99 mmol/L (98-107); CO2 24 mmol/L (21-32); CREATININE 0.7 mg/dL (0.55-1.3); GLUCOSE,RANDOM 115 mg/dL (74-106); MAGNESIUM 2.2 mg/dL (1.8-2.4); POTASSIUM 4.5 mmol/L (3.5-5.1); SGOT/AST 17 U/L (15-37); SGPT/ALT 27 U/L (13-61); SODIUM 133 mmol/L (136-145); TOT PROT 6.8 g/dl (6.4-8.2)
[2018-09-25 15:47] VITALS: TEMP 98.4
[2018-09-25] MEDS ORDERED: PORTA CATH FLUSH 10 ML IVPUSH ONE (16:14)
[2018-09-25 17:10] VITALS: BP 123/67; PULSE 86
== END 2018-09-25 17:11 | disposition home or self-care (01) ==
LOC: JONCCHEMO 07:10 → J7W 12:32 → JONCCHEMO 17:11
PROVIDERS: ATTEND Internal Medicine Hematology & Oncology
DX: Z51.11 Encounter for antineoplastic chemotherapy (principal); C50.919 Malignant neoplasm of unspecified site of unspecified female breast
CPT/HCPCS: 36415; 80048; 80076; 83735; 85025; 96361; 96367; 96375; 96413; 96417; J1453; J2469; J9070; J9171

== ENCOUNTER 2018-09-26 07:14 | Day surgery (SDC) | payer OTHER, MEDICARE ==
[2018-09-26] MEDS ORDERED: PEGFILGRASTIM 6 MG/0.6 ML DISP.SYRIN SQ ONE (09:00)
[2018-09-26 17:18] VITALS: BP 123/51; PULSE 81; TEMP 97.9
== END 2018-09-26 17:25 | disposition home or self-care (01) ==
LOC: JONCCHEMO 07:14 → J7W 17:02 → JONCCHEMO 17:25
PROVIDERS: ATTEND Internal Medicine Hematology & Oncology
PROC: 3E013GC Introduction of Other Therapeutic Substance into Subcutaneous Tissue, Percutaneous Approach (ICD-10-PCS; principal; 2018-09-26)
DX: C50.919 Malignant neoplasm of unspecified site of unspecified female breast (principal); Z76.89 Persons encountering health services in other specified circumstances
CPT/HCPCS: 96372; J2505

== ENCOUNTER → 2018-11-06 | Day surgery (SDC) | payer OTHER, MEDICARE ==
[2018-11-06 10:07] LABS: BASO % 0.2 % (0-2.0); HEMATOCRIT 33.8 % (32.4-45.2); HEMOGLOBIN 11.4 GM/dL (10.7-15.3); LYMPH % 22.7 % (8-40); MCHC 33.7 g/dl (32.0-36.0); MEAN CELL VOLUME 94.9 fl (80-96); MEAN PLT VOLUME 6.9 fl (7.5-11.1); MONO % 11.3 % (3.8-10.2); NEUT % 62.8 % (42.8-82.8); PLATELET COUNT 303 K/MM3 (134-434); RBC 3.56 M/mm3 (3.60-5.2); RDW 16.6 % (11.6-15.6); WHITE BLOOD COUNT 4.5 K/mm3 (4.0-10.0)
[2018-11-06 10:21] LABS: INR 1.08 (0.83-1.09); PROTHROMBIN TIME (PATIENT) 12.7 SEC (9.7-13.0)
== END | disposition home or self-care (01) ==
LOC: JRADIR 09:45
PROVIDERS: ATTEND Internal Medicine Hematology & Oncology
PROC: 0JPTXXZ Removal of Tunneled Vascular Access Device from Trunk Subcutaneous Tissue and Fascia, External Approach (ICD-10-PCS; principal; 2018-11-06)
DX: Z45.2 Encounter for adjustment and management of vascular access device (principal)
CPT/HCPCS: 36415; 36590; 77001-TC-FY; 85025; 85610

== ENCOUNTER 2019-02-21 05:22 | Day surgery (SDC) | payer BC ==
[2019-02-21] MEDS ORDERED: DENOSUMAB 120 MG/1.7 ML VIAL SQ ONE (17:15)
[2019-02-21 17:39] VITALS: BP 120/70; PULSE 86; TEMP 98.2
== END 2019-02-21 17:51 | disposition home or self-care (01) ==
LOC: JONCCHEMO 05:22 → J7W 16:29 → JONCCHEMO 17:51
PROVIDERS: ATTEND Internal Medicine Hematology & Oncology
PROC: 3E013GC Introduction of Other Therapeutic Substance into Subcutaneous Tissue, Percutaneous Approach (ICD-10-PCS; principal; 2019-02-21)
DX: Z76.89 Persons encountering health services in other specified circumstances (principal); C50.919 Malignant neoplasm of unspecified site of unspecified female breast
CPT/HCPCS: 36415; 80048; 82330; 96372; J0897

== ENCOUNTER 2019-12-26 08:32 | Day surgery (SDC) | payer OTHER, MEDICARE ==
[2019-12-26] MEDS ORDERED: DENOSUMAB 60 MG/ML DISP.SYRIN SQ ONE (10:00)
[2019-12-26 16:22] VITALS: BP 128/78; PULSE 77; TEMP 97.7
== END 2019-12-26 11:15 | disposition home or self-care (01) ==
LOC: JONCCHEMO 08:32
PROVIDERS: ATTEND Internal Medicine Hematology & Oncology
PROC: 3E013GC Introduction of Other Therapeutic Substance into Subcutaneous Tissue, Percutaneous Approach (ICD-10-PCS; principal; 2019-12-26)
DX: C50.111 Malignant neoplasm of central portion of right female breast (principal); M85.80 Other specified disorders of bone density and structure, unspecified site; Z85.850 Personal history of malignant neoplasm of thyroid; I10 Essential (primary) hypertension; R73.03 Prediabetes; E03.9 Hypothyroidism, unspecified
CPT/HCPCS: 96372; J0897

== ENCOUNTER 2020-07-02 17:27 | Day surgery (SDC) | payer OTHER, MEDICARE ==
[~2020-07-02 17:27] MED LIST: DENOSUMAB 60 MG/ML DISP.SYRIN SQ ONE
[2020-07-02 17:33] VITALS: BP 106/43; PULSE 75; TEMP 97.5
== END 2020-07-02 17:53 | disposition home or self-care (01) ==
LOC: JONCCHEMO 17:27
PROVIDERS: ATTEND Internal Medicine Hematology & Oncology
PROC: 3E013GC Introduction of Other Therapeutic Substance into Subcutaneous Tissue, Percutaneous Approach (ICD-10-PCS; principal; 2020-07-02)
DX: C50.111 Malignant neoplasm of central portion of right female breast (principal); M85.80 Other specified disorders of bone density and structure, unspecified site; Z85.850 Personal history of malignant neoplasm of thyroid
CPT/HCPCS: 96372; J0897

== ENCOUNTER 2020-12-31 07:43 | Day surgery (SDC) | payer OTHER, MEDICARE ==
[2020-12-31] MEDS ORDERED: DENOSUMAB 60 MG/ML DISP.SYRIN SQ ONE (10:00)
[2020-12-31 15:09] VITALS: BP 95/53; PULSE 74; TEMP 97.8
== END 2020-12-31 10:45 | disposition home or self-care (01) ==
LOC: JONCCHEMO 07:43
PROVIDERS: ATTEND Internal Medicine Hematology & Oncology
PROC: 3E013GC Introduction of Other Therapeutic Substance into Subcutaneous Tissue, Percutaneous Approach (ICD-10-PCS; principal; 2020-12-31)
DX: C50.111 Malignant neoplasm of central portion of right female breast (principal); Z76.89 Persons encountering health services in other specified circumstances
CPT/HCPCS: 96372; J0897

== ENCOUNTER 2021-07-01 08:02 | Day surgery (SDC) | payer OTHER, MEDICARE ==
[2021-07-01] MEDS ORDERED: DENOSUMAB 60 MG/ML DISP.SYRIN SQ ONE (10:00)
[2021-07-01 15:38] VITALS: BP 132/68; PULSE 68; TEMP 97.8
== END 2021-07-01 12:30 | disposition home or self-care (01) ==
LOC: JONCCHEMO 08:02
PROVIDERS: ATTEND Internal Medicine Hematology & Oncology
PROC: 3E013GC Introduction of Other Therapeutic Substance into Subcutaneous Tissue, Percutaneous Approach (ICD-10-PCS; principal; 2021-07-01)
DX: C50.111 Malignant neoplasm of central portion of right female breast (principal); Z76.89 Persons encountering health services in other specified circumstances
CPT/HCPCS: 96372; J0897

== ENCOUNTER 2021-12-30 06:56 | Day surgery (SDC) | payer OTHER, MEDICARE ==
[2021-12-30 09:58] LABS: BASO % 2.1 % (0-2.0); EOS % 1.5 % (0-4.5); HEMATOCRIT 36.6 % (32.4-45.2); HEMOGLOBIN 12.5 GM/dL (10.7-15.3); LYMPH % 32.8 % (8-40); MCH 31.8 pg (25.7-33.7); MCHC 34.2 g/dl (32.0-36.0); MEAN CELL VOLUME 93.1 fl (80-96); MEAN PLT VOLUME 6.8 fl (7.5-11.1); MONO % 12.2 % (3.8-10.2); NEUT % 51.4 % (42.8-82.8); PLATELET COUNT 288 10^3/uL (134-434); RBC 3.93 M/mm3 (3.60-5.2); RDW 14.3 % (11.6-15.6); WHITE BLOOD COUNT 4.9 K/mm3 (4.0-10.0)
[2021-12-30] MEDS ORDERED: DENOSUMAB 60 MG/ML DISP.SYRIN SQ ONE (10:00)
[2021-12-30 10:25] LABS: ALBUMIN 3.9 g/dl (3.4-5.0); BLOOD UREA NITROGEN 19.4 mg/dL (7-18); CALCIUM 8.5 mg/dL (8.5-10.1)
[2021-12-30 10:29] LABS: CREATININE 0.8 mg/dL (0.55-1.3)
[2021-12-30 10:30] LABS: BILIRUBIN,TOTAL 0.5 mg/dL (0.2-1); TOT PROT 6.9 g/dl (6.4-8.2)
[2021-12-30 16:11] VITALS: BP 127/67; PULSE 69; RESP 20; TEMP 97.5
== END 2021-12-30 10:50 | disposition home or self-care (01) ==
LOC: JONCCHEMO 06:56
PROVIDERS: ATTEND Internal Medicine Hematology & Oncology
DX: Z51.11 Encounter for antineoplastic chemotherapy (principal); C50.111 Malignant neoplasm of central portion of right female breast
CPT/HCPCS: 36415; 80053; 85025; 96372; 96401; J0897

== ENCOUNTER 2022-07-04 11:09 | Day surgery (SDC) | payer OTHER, MEDICARE ==
[2022-07-04] MEDS ORDERED: ZOLEDRONIC ACID/MAN/WATER 5 MG/100 ML INFUS..BTL IVPB ONE (12:00)
[2022-07-04] MEDS ORDERED: ACETAMINOPHEN 325 MG TABLET (FP) PO ONE (12:00)
[2022-07-04 12:47] VITALS: BP 111/59; TEMP 98
[2022-07-04 13:05] VITALS: PULSE 71; RESP 18
== END 2022-07-04 13:10 | disposition home or self-care (01) ==
LOC: FINFUSION 11:09 → FM/S 11:10 → FINFUSION 13:10
PROVIDERS: ATTEND Internal Medicine Endocrinology, Diabetes & Metabolism
PROC: 3E033GC Introduction of Other Therapeutic Substance into Peripheral Vein, Percutaneous Approach (ICD-10-PCS; principal; 2022-07-04)
DX: M81.0 Age-related osteoporosis without current pathological fracture (principal)
CPT/HCPCS: 96365; J3489